=== PATIENT | female | born 1960 | race Two or more races ===

== ENCOUNTER 2016-11-20 15:24 | Emergency (ER) | payer MEDICAID ==
[~2016-11-20] VITALS: Ht 154.9 cm; Wt 88.9 kg
[~2016-11-20 15:24] MED LIST: AMLO5TAB2 PO; ASPI-498 PO; BUPR100T14 PO; CITA-77 PO; GABA-494 PO; INSUINJ47 SC; LEVEMIR SC; LEVO100T8 PO; LOSA50TA6 PO; NOR5T PO; OMEP20CA5 PO
[2016-11-20] MEDS ORDERED: SODIUM CHLORIDE 0.9% 500 ML IVB ONE (15:56)
[2016-11-20] MEDS ORDERED: ONDANSETRON HCL 4 MG/2 ML VIAL IV ONE (16:00)
[2016-11-20] MEDS ORDERED: HYDROmorphone HCL 2 MG/ML VL IV ONE (16:00)
[2016-11-20 16:38] LABS: Basophils # (auto) 0.2 uL; Basophils % (auto) 1.7 % (0.0-2.0); DEFINITIVE VIEW TRANSMISSION; Eosinophils # (auto) 0.2 uL; Eosinophils % (auto) 1.9 % (0.0-7.0); Hematocrit 38.8 % (36.0-46.0); Hemoglobin 12.6 g/dL (12.2-16.2); Lymphocytes # (auto) 3.5 uL; Lymphocytes % (auto) 30.2 % (10.0-50.0); Mean Corpuscular Hemoglobin 26.8 pg (28.0-32.0); Mean Corpuscular Hgb Conc. 32.5 g/dL (32.0-36.0); Mean Corpuscular Volume 82.7 fL (80.0-100.0); Mean Platelet Volume 9.1 fL (7.4-10.4); Monocytes # (auto) 0.6 uL; Monocytes % (auto) 4.8 % (0.0-12.0); Neutrophils # (auto) 7.1 uL; Neutrophils % (auto) 61.4 % (37.0-80.0); Platelet Count (auto) 319 10^3/uL (140-450); Red Cell Distribution Width 15.2 % (11.6-16.0); White Blood Cell 11.6 10^3/uL (4.4-10.8)
[2016-11-20 16:44] LABS: Albumin 3.6 g/dL (3.4-5.0); BUN/Creatinine Ratio 17.4; Bilirubin, Total 0.3 mg/dL (0.2-1.0); Calcium 9.4 mg/dL (8.5-10.1); Potassium 3.6 mmol/L (3.5-5.1); Total Protein 7.7 g/dL (6.4-8.2)
[2016-11-20] MEDS ORDERED: IOHEXOL 300 MG/ML 100ML BOTTLE IJ ONE (18:19)
[2016-11-20 21:44] LABS: Urine Bilirubin Negative (Negative); Urine Blood TRACE /uL (Negative); Urine Color Yellow (Yellow); Urine Glucose Normal (Normal); Urine Ketone Negative (Negative); Urine Nitrite Negative (Negative); Urine RBC 6 /hpf (0 - 4); Urine Squamous Epithelial Cell FEW /hpf (<5); Urine Urobilinogen Normal (Negative)
[2016-11-20 23:35] VITALS: BP 128/62
== END 2016-11-21 00:06 | disposition home or self-care (01) ==
LOC: ER 15:27
DX: R10.9 Unspecified abdominal pain (principal); R11.0 Nausea; E11.9 Type 2 diabetes mellitus without complications; E78.5 Hyperlipidemia, unspecified; I10 Essential (primary) hypertension; Z90.49 Acquired absence of other specified parts of digestive tract; Z90.710 Acquired absence of both cervix and uterus; Z88.8 Allergy status to other drugs, medicaments and biological substances; Z79.4 Long term (current) use of insulin; F17.210 Nicotine dependence, cigarettes, uncomplicated; Z79.82 Long term (current) use of aspirin
CPT/HCPCS: 36415; 74177; 80053; 81001; 82150; 83690; 85025; 93005; 94761; 96361; 96374; 96375; 99285; J1170; J2405; J7040; Q9967

== ENCOUNTER 2017-04-07 13:21 | Emergency (ER) | payer MEDICAID ==
[~2017-04-07] VITALS: Ht 154.9 cm; Wt 84.8 kg
[~2017-04-07 13:21] MED LIST changes: +HYDR-4663 PO; -NOR5T PO; -OMEP20CA5 PO; +OMEP20CA74 PO
[2017-04-07 14:29] LABS: Urine Bilirubin Negative (Negative); Urine Blood 1+ /uL (Negative); Urine Color Yellow (Yellow); Urine Glucose TRACE mg/dL (Normal); Urine Ketone Negative (Negative); Urine Mucus FEW (None Seen); Urine Nitrite Negative (Negative); Urine RBC 28 /hpf (0 - 4); Urine Squamous Epithelial Cell MOD /hpf (<5); Urine pH 5.5 (5.0-8.0)
[2017-04-07 17:00] VITALS: BP 129/73
[2017-04-07] MEDS ORDERED: cefTRIAXone SOD 1,000 MG VL IM ONE (18:00)
== END 2017-04-07 18:33 | disposition home or self-care (01) ==
LOC: ER 13:21
DX: N39.0 Urinary tract infection, site not specified (principal); E11.9 Type 2 diabetes mellitus without complications; E78.5 Hyperlipidemia, unspecified; I10 Essential (primary) hypertension; Z90.710 Acquired absence of both cervix and uterus; Z88.2 Allergy status to sulfonamides; Z79.4 Long term (current) use of insulin; Z90.49 Acquired absence of other specified parts of digestive tract; F17.210 Nicotine dependence, cigarettes, uncomplicated
CPT/HCPCS: 74176; 81001; 82962; 96372; 99285; J0696

== ENCOUNTER 2018-05-17 13:04 | Emergency (ER) | payer MEDICAID ==
[~2018-05-17] VITALS: Ht 154.9 cm; Wt 94.3 kg
[~2018-05-17 13:04] MED LIST changes: +AMLO5TAB13 PO; -AMLO5TAB2 PO; -GABA-494 PO; +GABA100C9 PO; -HYDR-4663 PO; +HYDR-4683 PO; +LOSA-46 PO; -LOSA50TA6 PO
[2018-05-17 13:49] VITALS: BP 107/74
[2018-05-17] MEDS ORDERED: KETOROLAC TROMETH 60MG/2ML VIAL IM ONE (14:45)
[2018-05-17] MEDS ORDERED: METHOCARBAMOL 500 MG TAB PO ONE (14:45)
== END 2018-05-17 16:29 | disposition home or self-care (01) ==
LOC: ER 13:04
DX: M47.26 Other spondylosis with radiculopathy, lumbar region (principal); M85.80 Other specified disorders of bone density and structure, unspecified site; F17.210 Nicotine dependence, cigarettes, uncomplicated; E11.9 Type 2 diabetes mellitus without complications; E78.5 Hyperlipidemia, unspecified; I10 Essential (primary) hypertension; Z90.49 Acquired absence of other specified parts of digestive tract; Z90.710 Acquired absence of both cervix and uterus; Z87.440 Personal history of urinary (tract) infections; Z88.2 Allergy status to sulfonamides; Z79.4 Long term (current) use of insulin
CPT/HCPCS: 72070; 72100; 96372; 99284; J1885

== ENCOUNTER 2020-08-13 10:19 | Inpatient (IN) | payer MEDICAID ==
[~2020-08-13] VITALS: Ht 154.9 cm; Wt 108.0 kg
[~2020-08-13 10:19] MED LIST changes: +AMLO-489 PO; -AMLO5TAB13 PO; -HYDR-4683 PO; +HYDR-4833 PO; -LOSA-46 PO; +LOSA-69 PO
[2020-08-13 11:06] LABS: Basophils # (auto) 0 10 ^3/uL (0-0.2); Basophils % (auto) 0.4 % (0.0-2.0); Eosinophils # (auto) 0 10 ^3/uL (0-0.8); Lymphocytes # (auto) 1.3 10 ^3/uL (0.4-5.4); Monocytes # (auto) 0.5 10 ^3/uL (0-1.3); Neutrophils # (auto) 4.1 10 ^3/uL (1.6-8.6); Neutrophils % (auto) 69.4 % (37.0-80.0)
[2020-08-13 11:08] LABS: Hematocrit 38.9 % (36.0-46.0); Hemoglobin 12.9 g/dL (12.2-16.2); Lymphocytes % (auto) 21.8 % (10.0-50.0); Mean Corpuscular Hemoglobin 26.6 pg (28.0-32.0); Mean Corpuscular Hgb Conc. 33.1 g/dL (32.0-36.0); Mean Corpuscular Volume 80.4 fL (80.0-100.0); Monocytes % (auto) 8.4 % (0.0-12.0); Nucleated Red Blood Cells % 0.1 %; Platelet Count (auto) 187 10^3/uL (140-450); Red Blood Cells 4.84 10^6/uL (4.0-5.20); Red Cell Distribution Width 15.9 % (11.8-14.3)
[2020-08-13 11:21] LABS: Albumin 3.2 g/dL (3.4-5.0); Calcium 8.4 mg/dL (8.5-10.1)
[2020-08-13 11:25] LABS: BUN/Creatinine Ratio 9.1; Bilirubin, Total 0.3 mg/dL (0.2-1.0)
[2020-08-13] MEDS ORDERED: methylPREDNISolone SOD SUCC 125 MG/2 ML VL IV ONE (11:45)
[2020-08-13] MEDS ORDERED: AZITHROMYCIN 500MG/ 250ML 250 ML IV ONE (11:45)
[2020-08-13 11:50] LABS: CRP High Sensitivity 2.08 mg/dL (< 0.3)
[2020-08-13] MEDS ORDERED: REMDESIVIR PER PHARMACY 0 ML IV SCH (12:15)
[2020-08-13] MEDS ORDERED: NITROGLYCERIN 0.4 MG SL TAB SL PRN (12:45)
[2020-08-13] MEDS ORDERED: MORPHINE SULF INJ 2 MG/ML SYRINGE 1ML IV PRN (12:45)
[2020-08-13] MEDS ORDERED: DEXTROSE (50%) 50ML SYRG IV PRN (15:15)
[2020-08-13] MEDS: ACCU-CHEK COMFORT CURVE STRIP VI SCH ×2 (17:00→22:33)
[2020-08-13] MEDS: InsuLIN REG 1unit/0.01ml Soln (100units/ml) SC SCH ×2 (17:00→22:33)
[2020-08-13] MEDS ORDERED: LOSA-39 PO (17:56)
[2020-08-13] MEDS ORDERED: INSU1INJ19 SC (17:56)
[2020-08-13] MEDS ORDERED: KETO2SHA5 EX (17:56)
[2020-08-13] MEDS ORDERED: GABA800T97 PO (17:56)
[2020-08-13] MEDS ORDERED: TRAZ-184 PO (17:56)
[2020-08-13] MEDS ORDERED: ALBUAER3 IN (17:56)
[2020-08-13] MEDS ORDERED: ATOR10TA52 PO (17:56)
[2020-08-13] MEDS ORDERED: OMEP-260 PO (17:56)
[2020-08-13] MEDS ORDERED: INSU100I51 SC (17:56)
[2020-08-13] MEDS ORDERED: BUSP10TA31 PO (17:56)
[2020-08-13] MEDS ORDERED: ESTR0.1C5 VA (17:56)
[2020-08-13] MEDS ORDERED: ESCI20TA PO (17:56)
[2020-08-13] MEDS ORDERED: PREG150C PO (17:56)
[2020-08-13] MEDS ORDERED: LEVO88TA4 PO (17:56)
[2020-08-13] MEDS ORDERED: METF-929 PO (17:56)
[2020-08-13] MEDS ORDERED: LORA-622 PO (18:06)
[2020-08-13] MEDS: buPROPion HCL 75 MG TAB PO SCH (23:07)
[2020-08-13] MEDS: ENOXAPARIN SOD 40 MG/0.4 ML SYRINGE SC SCH (23:08)
[2020-08-14 06:01] LABS: Basophils # (auto) 0 10 ^3/uL (0-0.2); Eosinophils # (auto) 0 10 ^3/uL (0-0.8); Monocytes # (auto) 0.3 10 ^3/uL (0-1.3)
[2020-08-14 06:07] LABS: Hematocrit 38.4 % (36.0-46.0); Hemoglobin 12.9 g/dL (12.2-16.2); Lymphocytes # (auto) 0.8 10 ^3/uL (0.4-5.4); Lymphocytes % (auto) 16.9 % (10.0-50.0); Mean Corpuscular Hemoglobin 26.9 pg (28.0-32.0); Mean Corpuscular Hgb Conc. 33.7 g/dL (32.0-36.0); Mean Corpuscular Volume 79.9 fL (80.0-100.0); Monocytes % (auto) 6.6 % (0.0-12.0); Neutrophils # (auto) 3.7 10 ^3/uL (1.6-8.6); Neutrophils % (auto) 76.5 % (37.0-80.0); Platelet Count (auto) 176 10^3/uL (140-450); Red Blood Cells 4.81 10^6/uL (4.0-5.20); Red Cell Distribution Width 15.7 % (11.8-14.3); White Blood Cell 4.8 10^3/uL (4.4-10.8)
[2020-08-14 06:17] LABS: Potassium 3.8 mmol/L (3.5-5.1)
[2020-08-14 06:30] LABS: BUN/Creatinine Ratio 20.3; Calcium 8.4 mg/dL (8.5-10.1); Magnesium 2.8 mg/dL (1.6-2.6)
[2020-08-14] MEDS: ACCU-CHEK COMFORT CURVE STRIP VI SCH ×4 (07:08→23:44)
[2020-08-14] MEDS: InsuLIN REG 1unit/0.01ml Soln (100units/ml) SC SCH ×4 (07:09→23:51)
[2020-08-14] MEDS ORDERED: AZITHROMYCIN 500MG/ 250ML 250 ML IV SCH (10:00)
[2020-08-14] MEDS ORDERED: LEVOTHYROXINE SODIUM 100 MCG TAB PO SCH (10:00)
[2020-08-14] MEDS: LOSARTAN POTASSIUM 50 MG TAB PO SCH (10:00)
[2020-08-14] MEDS: amLODIPine BESYLATE 5 MG TAB PO SCH (10:00)
[2020-08-14] MEDS: cefTRIAXone 1GM/50ML D5W 50 ML IV SCH (10:02)
[2020-08-14] MEDS: buPROPion HCL 75 MG TAB PO SCH ×2 (10:04→23:41)
[2020-08-14] MEDS: CITALOPRAM HYDROBR 20 MG TAB PO SCH (10:04)
[2020-08-14] MEDS: ENOXAPARIN SOD 40 MG/0.4 ML SYRINGE SC SCH ×2 (10:04→23:41)
[2020-08-14] MEDS: ASPirin-EC 81 mg tab PO SCH (10:04)
[2020-08-14] MEDS: DexAMETHasone SOD PHOS 10MG/1ML VIAL INJ IV SCH (10:06)
[2020-08-14] MEDS: ACETAMINOPHEN 325 MG TAB PO PRN (10:22)
[2020-08-14] MEDS ORDERED: DEXTROSE (50%) 50ML SYRG IV PRN (18:30)
[2020-08-14 21:30] VITALS: BP 139/88
[2020-08-14 22:00] VITALS: BP 138/63
[2020-08-15] MEDS: MORPHINE SULF INJ 2 MG/ML SYRINGE 1ML IV PRN ×2 (03:03→22:28)
[2020-08-15] MEDS: InsuLIN REG 1unit/0.01ml Soln (100units/ml) SC SCH ×4 (06:00→23:48)
[2020-08-15] MEDS: ACCU-CHEK COMFORT CURVE STRIP VI SCH ×4 (06:25→23:46)
[2020-08-15 07:35] LABS: Potassium 3.7 mmol/L (3.5-5.1)
[2020-08-15 07:51] LABS: Albumin 2.9 g/dL (3.4-5.0); BUN/Creatinine Ratio 20.8; Bilirubin, Total 0.3 mg/dL (0.2-1.0); CRP High Sensitivity 1.63 mg/dL (< 0.3); Calcium 8.5 mg/dL (8.5-10.1); Total Protein 7.6 g/dL (6.4-8.2)
[2020-08-15 09:00] VITALS: BP 129/62
[2020-08-15] MEDS: cefTRIAXone 1GM/50ML D5W 50 ML IV SCH (09:33)
[2020-08-15] MEDS: DexAMETHasone SOD PHOS 10MG/1ML VIAL INJ IV SCH (09:33)
[2020-08-15] MEDS: CITALOPRAM HYDROBR 20 MG TAB PO SCH (09:43)
[2020-08-15] MEDS: ASPirin-EC 81 mg tab PO SCH (09:43)
[2020-08-15] MEDS: buPROPion HCL 75 MG TAB PO SCH ×2 (09:45→22:20)
[2020-08-15] MEDS: amLODIPine BESYLATE 5 MG TAB PO SCH (09:50)
[2020-08-15] MEDS ORDERED: LEVOTHYROXINE SODIUM 100 MCG TAB PO SCH (10:00)
[2020-08-15] MEDS: ENOXAPARIN SOD 40 MG/0.4 ML SYRINGE SC SCH ×2 (11:26→22:20)
[2020-08-15] MEDS: LOSARTAN POTASSIUM 50 MG TAB PO SCH (11:26)
[2020-08-15] MEDS: INSULIN LANTUS (GLARGINE) 1 /0.01ml (100units/ml) SC SCH ×2 (11:27→22:27)
[2020-08-15] MEDS: ACETAMINOPHEN 325 MG TAB PO PRN ×2 (11:28→18:45)
[2020-08-15 13:00] VITALS: BP 122/57
[2020-08-15] MEDS ORDERED: REMDESIVIR PER PHARMACY 0 ML IV SCH (15:45)
[2020-08-15 16:00] VITALS: BP 137/71
[2020-08-15] MEDS ORDERED: REMDESIVIR 200 MG in NS 210ml LOADING DOSE ADULT IV ONE (17:00)
[2020-08-15] MEDS: BUDESONIDE (INHALATION) 180 MCG IH IN SCH (21:44)
[2020-08-15] MEDS: ALBUTEROL SULF HFA 90MCG INH 200DOSE IN SCH (21:44)
[2020-08-15] MEDS ORDERED: PATIENTS OWN MEDICATION (PULMICORT 360 MCG) INH SCH (22:00)
[2020-08-16] VITALS: BP 135/74
[2020-08-16] MEDS: ALBUTEROL SULF HFA 90MCG INH 200DOSE IN SCH ×2 (06:09→18:30)
[2020-08-16] MEDS: ACCU-CHEK COMFORT CURVE STRIP VI SCH ×3 (06:09→18:00)
[2020-08-16] MEDS: InsuLIN REG 1unit/0.01ml Soln (100units/ml) SC SCH ×3 (06:27→17:55)
[2020-08-16] MEDS: INSULIN LANTUS (GLARGINE) 1 /0.01ml (100units/ml) SC SCH ×2 (06:27→22:00)
[2020-08-16 08:00] VITALS: BP 119/57
[2020-08-16 08:00] LABS: Basophils # (auto) 0 10 ^3/uL (0-0.2); Basophils % (auto) 0.1 % (0.0-2.0); Eosinophils # (auto) 0 10 ^3/uL (0-0.8); Hemoglobin 12.8 g/dL (12.2-16.2); Neutrophils # (auto) 14.1 10 ^3/uL (1.6-8.6)
[2020-08-16 08:04] LABS: Hematocrit 39.4 % (36.0-46.0); Lymphocytes # (auto) 1.3 10 ^3/uL (0.4-5.4); Lymphocytes % (auto) 8.3 % (10.0-50.0); Mean Corpuscular Hemoglobin 25.9 pg (28.0-32.0); Mean Corpuscular Hgb Conc. 32.5 g/dL (32.0-36.0); Mean Corpuscular Volume 79.6 fL (80.0-100.0); Monocytes # (auto) 0.5 10 ^3/uL (0-1.3); Neutrophils % (auto) 88.6 % (37.0-80.0); Platelet Count (auto) 283 10^3/uL (140-450); Red Blood Cells 4.96 10^6/uL (4.0-5.20); Red Cell Distribution Width 15.6 % (11.8-14.3); White Blood Cell 15.9 10^3/uL (4.4-10.8)
[2020-08-16 08:27] LABS: Potassium 3.7 mmol/L (3.5-5.1)
[2020-08-16 08:46] LABS: Albumin 2.9 g/dL (3.4-5.0); BUN/Creatinine Ratio 14.5; Bilirubin, Total 0.4 mg/dL (0.2-1.0); CRP High Sensitivity 10.3 mg/dL (< 0.3); Calcium 8.8 mg/dL (8.5-10.1); Magnesium 2.4 mg/dL (1.6-2.6)
[2020-08-16] MEDS: BUDESONIDE (INHALATION) 180 MCG IH IN SCH ×2 (09:57→18:30)
[2020-08-16] MEDS: amLODIPine BESYLATE 5 MG TAB PO SCH (10:00)
[2020-08-16] MEDS: LOSARTAN POTASSIUM 50 MG TAB PO SCH (10:00)
[2020-08-16] MEDS: ENOXAPARIN SOD 40 MG/0.4 ML SYRINGE SC SCH ×2 (11:58→22:25)
[2020-08-16] MEDS: buPROPion HCL 75 MG TAB PO SCH ×2 (11:58→22:25)
[2020-08-16] MEDS: DexAMETHasone SOD PHOS 10MG/1ML VIAL INJ IV SCH (11:58)
[2020-08-16] MEDS: LEVOTHYROXINE SODIUM 88 MCG TAB PO SCH (11:58)
[2020-08-16] MEDS: ASPirin-EC 81 mg tab PO SCH (11:58)
[2020-08-16] MEDS: CITALOPRAM HYDROBR 20 MG TAB PO SCH (11:58)
[2020-08-16] MEDS: REMDESIVIR 100 MG in SODIUM CHL 0.9% 250 ML IV SCH (15:35)
[2020-08-16 22:00] VITALS: BP 121/63
[2020-08-17] MEDS: PROMETHAZINE W/CODEINE 5 ML ORAL SYRUP PO PRN (00:05)
[2020-08-17] MEDS: ACCU-CHEK COMFORT CURVE STRIP VI SCH ×4 (00:05→18:00)
[2020-08-17] MEDS: InsuLIN REG 1unit/0.01ml Soln (100units/ml) SC SCH ×4 (00:18→18:45)
[2020-08-17] MEDS: BUDESONIDE (INHALATION) 180 MCG IH IN SCH ×2 (00:25→10:00)
[2020-08-17] MEDS: ALBUTEROL SULF HFA 90MCG INH 200DOSE IN SCH ×2 (00:25→05:49)
[2020-08-17] MEDS: INSULIN LANTUS (GLARGINE) 1 /0.01ml (100units/ml) SC SCH (06:41)
[2020-08-17 07:00] LABS: Potassium 4.2 mmol/L (3.5-5.1)
[2020-08-17 07:14] LABS: Albumin 2.6 g/dL (3.4-5.0); BUN/Creatinine Ratio 23.6; Bilirubin, Total 0.5 mg/dL (0.2-1.0); Calcium 8.7 mg/dL (8.5-10.1); Total Protein 7.6 g/dL (6.4-8.2)
[2020-08-17] MEDS: amLODIPine BESYLATE 5 MG TAB PO SCH (11:25)
[2020-08-17] MEDS: LOSARTAN POTASSIUM 50 MG TAB PO SCH (11:25)
[2020-08-17] MEDS: DexAMETHasone SOD PHOS 10MG/1ML VIAL INJ IV SCH (11:25)
[2020-08-17] MEDS: buPROPion HCL 75 MG TAB PO SCH (11:25)
[2020-08-17] MEDS: CITALOPRAM HYDROBR 20 MG TAB PO SCH (11:25)
[2020-08-17] MEDS: LEVOTHYROXINE SODIUM 88 MCG TAB PO SCH (11:25)
[2020-08-17] MEDS: ENOXAPARIN SOD 40 MG/0.4 ML SYRINGE SC SCH (11:25)
[2020-08-17] MEDS: ASPirin-EC 81 mg tab PO SCH (11:25)
[2020-08-17] MEDS: REMDESIVIR 100 MG in SODIUM CHL 0.9% 250 ML IV SCH (15:35)
[2020-08-17 16:00] VITALS: BP 121/62
[2020-08-18] VITALS: BP 116/59
[2020-08-18] MEDS: ACCU-CHEK COMFORT CURVE STRIP VI SCH ×4 (00:09→17:48)
[2020-08-18] MEDS: buPROPion HCL 75 MG TAB PO SCH ×3 (00:23→21:24)
[2020-08-18] MEDS: ENOXAPARIN SOD 40 MG/0.4 ML SYRINGE SC SCH ×3 (00:24→21:24)
[2020-08-18] MEDS: InsuLIN REG 1unit/0.01ml Soln (100units/ml) SC SCH ×4 (00:25→18:00)
[2020-08-18] MEDS: INSULIN LANTUS (GLARGINE) 1 /0.01ml (100units/ml) SC SCH ×3 (00:26→21:41)
[2020-08-18] MEDS: ALBUTEROL SULF HFA 90MCG INH 200DOSE IN SCH ×3 (07:04→19:55)
[2020-08-18 08:00] VITALS: BP 112/38
[2020-08-18 09:04] LABS: Basophils # (auto) 0 10 ^3/uL (0-0.2); Basophils % (auto) 0.1 % (0.0-2.0); Eosinophils # (auto) 0 10 ^3/uL (0-0.8); Monocytes # (auto) 0.7 10 ^3/uL (0-1.3); Red Blood Cells 4.66 10^6/uL (4.0-5.20)
[2020-08-18 09:05] LABS: Hematocrit 37.6 % (36.0-46.0); Hemoglobin 12.2 g/dL (12.2-16.2); Lymphocytes # (auto) 0.8 10 ^3/uL (0.4-5.4); Lymphocytes % (auto) 7.8 % (10.0-50.0); Mean Corpuscular Hemoglobin 26.2 pg (28.0-32.0); Mean Corpuscular Hgb Conc. 32.5 g/dL (32.0-36.0); Mean Corpuscular Volume 80.7 fL (80.0-100.0); Monocytes % (auto) 7.1 % (0.0-12.0); Neutrophils # (auto) 8.3 10 ^3/uL (1.6-8.6); Platelet Count (auto) 329 10^3/uL (140-450); Red Cell Distribution Width 15.7 % (11.8-14.3); White Blood Cell 9.8 10^3/uL (4.4-10.8)
[2020-08-18 09:13] LABS: Albumin 2.5 g/dL (3.4-5.0); Calcium 9.2 mg/dL (8.5-10.1); Magnesium 2.6 mg/dL (1.6-2.6); Potassium 3.7 mmol/L (3.5-5.1)
[2020-08-18 09:22] LABS: BUN/Creatinine Ratio 33.3; Bilirubin, Total 0.4 mg/dL (0.2-1.0); Total Protein 7.3 g/dL (6.4-8.2)
[2020-08-18] MEDS: LOSARTAN POTASSIUM 50 MG TAB PO SCH (10:00)
[2020-08-18] MEDS: LEVOTHYROXINE SODIUM 88 MCG TAB PO SCH (10:12)
[2020-08-18] MEDS: ASPirin-EC 81 mg tab PO SCH (10:12)
[2020-08-18] MEDS: DexAMETHasone SOD PHOS 10MG/1ML VIAL INJ IV SCH (10:12)
[2020-08-18] MEDS: CITALOPRAM HYDROBR 20 MG TAB PO SCH (10:12)
[2020-08-18] MEDS: amLODIPine BESYLATE 5 MG TAB PO SCH (10:51)
[2020-08-18 11:43] LABS: Pre Albumin 8.7 mg/dL (20.0-40.0)
[2020-08-18] MEDS: BUDESONIDE (INHALATION) 180 MCG IH IN SCH ×2 (11:48→19:55)
[2020-08-18] MEDS ORDERED: SODIUM PHOSP 40 MEQ in D5W 5% 250 ML IV ONE (12:00)
[2020-08-18] MEDS ORDERED: DEXTROSE (50%) 50ML SYRG IV SCH (12:00)
[2020-08-18] MEDS: REMDESIVIR 100 MG in SODIUM CHL 0.9% 250 ML IV SCH (15:54)
[2020-08-18 16:00] VITALS: BP 133/59
[2020-08-18] MEDS ORDERED: PPN PER PHARMACY IV NR ×8 (20:00)
[2020-08-18] MEDS ORDERED: PPN PER PHARMACY 0 ML IV SCH (20:00)
[2020-08-19] VITALS: BP 96/65
[2020-08-19] MEDS: ACCU-CHEK COMFORT CURVE STRIP VI SCH ×5 (00:02→23:15)
[2020-08-19] MEDS: InsuLIN REG 1unit/0.01ml Soln (100units/ml) SC SCH ×5 (00:05→23:16)
[2020-08-19] MEDS: INSULIN LANTUS (GLARGINE) 1 /0.01ml (100units/ml) SC SCH ×2 (06:32→23:18)
[2020-08-19] MEDS: ALBUTEROL SULF HFA 90MCG INH 200DOSE IN SCH ×3 (06:37→18:59)
[2020-08-19] MEDS: BUDESONIDE (INHALATION) 180 MCG IH IN SCH ×2 (06:38→18:59)
[2020-08-19 07:57] LABS: Potassium 3.8 mmol/L (3.5-5.1)
[2020-08-19 08:00] VITALS: BP 137/60
[2020-08-19 08:19] LABS: Albumin 2.6 g/dL (3.4-5.0); BUN/Creatinine Ratio 27.9; Bilirubin, Total 0.5 mg/dL (0.2-1.0); Calcium 8.6 mg/dL (8.5-10.1); Magnesium 2.3 mg/dL (1.6-2.6)
[2020-08-19 08:20] LABS: Phosphorus 3.1 mg/dL (2.5-4.90)
[2020-08-19] MEDS: ENOXAPARIN SOD 40 MG/0.4 ML SYRINGE SC SCH ×2 (13:24→23:17)
[2020-08-19] MEDS: ASPirin-EC 81 mg tab PO SCH (13:25)
[2020-08-19] MEDS: LEVOTHYROXINE SODIUM 88 MCG TAB PO SCH (13:25)
[2020-08-19] MEDS: buPROPion HCL 75 MG TAB PO SCH ×2 (13:25→23:15)
[2020-08-19] MEDS: CITALOPRAM HYDROBR 20 MG TAB PO SCH (13:25)
[2020-08-19] MEDS: LOSARTAN POTASSIUM 50 MG TAB PO SCH (13:25)
[2020-08-19] MEDS: DexAMETHasone SOD PHOS 10MG/1ML VIAL INJ IV SCH (13:26)
[2020-08-19] MEDS: amLODIPine BESYLATE 5 MG TAB PO SCH (13:26)
[2020-08-19 16:00] VITALS: BP 125/68
[2020-08-19] MEDS: REMDESIVIR 100 MG in SODIUM CHL 0.9% 250 ML IV SCH (18:52)
[2020-08-19] MEDS ORDERED: PPN PER PHARMACY IV NR ×11 (20:00)
[2020-08-19] MEDS: ACETAMINOPHEN 325 MG TAB PO PRN (23:34)
[2020-08-20] MEDS: ALBUTEROL SULF HFA 90MCG INH 200DOSE IN SCH ×3 (06:00→14:00)
[2020-08-20] MEDS: ACCU-CHEK COMFORT CURVE STRIP VI SCH ×4 (06:21→23:30)
[2020-08-20] MEDS: InsuLIN REG 1unit/0.01ml Soln (100units/ml) SC SCH ×4 (06:23→23:31)
[2020-08-20] MEDS: INSULIN LANTUS (GLARGINE) 1 /0.01ml (100units/ml) SC SCH ×2 (06:24→23:29)
[2020-08-20 06:59] LABS: Hemoglobin 12.4 g/dL (12.2-16.2)
[2020-08-20 07:04] LABS: Hematocrit 38.6 % (36.0-46.0); Mean Corpuscular Hemoglobin 25.7 pg (28.0-32.0); Mean Corpuscular Hgb Conc. 32.1 g/dL (32.0-36.0); Mean Corpuscular Volume 80.2 fL (80.0-100.0); Platelet Count (auto) 344 10^3/uL (140-450); Red Blood Cells 4.81 10^6/uL (4.0-5.20); Red Cell Distribution Width 15.6 % (11.8-14.3); White Blood Cell 10.5 10^3/uL (4.4-10.8)
[2020-08-20 07:11] LABS: Band Neutrophils % (manual) 0; Basophils % (manual) 0 (0.0-2.0); Blast Cells 0; Eosinophils % (manual) 0 (0-7); Metamyelocytes % 0; Promyelocytes % 0; Reactive Lymphocytes 0
[2020-08-20 07:23] LABS: Potassium 3.7 mmol/L (3.5-5.1)
[2020-08-20 07:36] LABS: Albumin 2.5 g/dL (3.4-5.0); BUN/Creatinine Ratio 26.3; Bilirubin, Total 0.7 mg/dL (0.2-1.0); Magnesium 2.2 mg/dL (1.6-2.6); Phosphorus 2.5 mg/dL (2.5-4.90); Total Protein 7.2 g/dL (6.4-8.2)
[2020-08-20 08:00] VITALS: BP 135/74
[2020-08-20 08:15] LABS: Lymphocytes % (manual) 9 (10.0-50.0); Monocytes % (manual) 2 (0-12); Myelocytes % 2
[2020-08-20] MEDS ORDERED: FUROSEMIDE 40 MG/4 ML VIAL IV ONE (08:30)
[2020-08-20] MEDS: BUDESONIDE (INHALATION) 180 MCG IH IN SCH (10:00)
[2020-08-20] MEDS: ENOXAPARIN SOD 40 MG/0.4 ML SYRINGE SC SCH ×2 (10:00→23:29)
[2020-08-20] MEDS: buPROPion HCL 75 MG TAB PO SCH ×2 (11:40→23:28)
[2020-08-20] MEDS: CITALOPRAM HYDROBR 20 MG TAB PO SCH (11:40)
[2020-08-20] MEDS: DexAMETHasone SOD PHOS 10MG/1ML VIAL INJ IV SCH (11:40)
[2020-08-20] MEDS: LOSARTAN POTASSIUM 50 MG TAB PO SCH (11:41)
[2020-08-20] MEDS: LEVOTHYROXINE SODIUM 88 MCG TAB PO SCH (11:41)
[2020-08-20] MEDS: ASPirin-EC 81 mg tab PO SCH (11:41)
[2020-08-20] MEDS: amLODIPine BESYLATE 5 MG TAB PO SCH (11:42)
[2020-08-20] MEDS: ONDANSETRON HCL 4 MG/2 ML VIAL IV PRN (16:45)
[2020-08-20] MEDS: MORPHINE SULF INJ 2 MG/ML SYRINGE 1ML IV PRN (16:45)
[2020-08-20] MEDS ORDERED: PPN PER PHARMACY IV NR ×10 (20:00)
[2020-08-20] MEDS ORDERED: AMINO ACID INFUSION IN D10W 1,000 ML IV NR (20:00)
[2020-08-21] MEDS: ACCU-CHEK COMFORT CURVE STRIP VI SCH ×4 (05:57→23:10)
[2020-08-21] MEDS: InsuLIN REG 1unit/0.01ml Soln (100units/ml) SC SCH ×4 (05:59→23:12)
[2020-08-21] MEDS: INSULIN LANTUS (GLARGINE) 1 /0.01ml (100units/ml) SC SCH ×2 (06:01→23:09)
[2020-08-21 08:00] VITALS: BP 119/75
[2020-08-21 09:01] LABS: Potassium 3.8 mmol/L (3.5-5.1)
[2020-08-21] MEDS ORDERED: PPN PER PHARMACY IV NR ×19 (09:15→20:00)
[2020-08-21] MEDS: BUDESONIDE (INHALATION) 180 MCG IH IN SCH ×2 (10:00→20:22)
[2020-08-21] MEDS: ALBUTEROL SULF HFA 90MCG INH 200DOSE IN SCH ×2 (10:00→20:22)
[2020-08-21 10:06] LABS: Albumin 2.7 g/dL (3.4-5.0); Bilirubin, Total 0.6 mg/dL (0.2-1.0); Calcium 9.2 mg/dL (8.5-10.1); Phosphorus 2.4 mg/dL (2.5-4.90); Total Protein 7.6 g/dL (6.4-8.2)
[2020-08-21 10:58] LABS: CRP High Sensitivity 1.84 mg/dL (< 0.3)
[2020-08-21] MEDS: DexAMETHasone SOD PHOS 10MG/1ML VIAL INJ IV SCH (11:56)
[2020-08-21] MEDS ORDERED: SODIUM PHOSPHATES 10 MEQ in SODIUM CHL 0.9% 100 ML IV ONE (12:00)
[2020-08-21] MEDS: buPROPion HCL 75 MG TAB PO SCH ×2 (12:30→23:36)
[2020-08-21] MEDS: LEVOTHYROXINE SODIUM 88 MCG TAB PO SCH (12:30)
[2020-08-21] MEDS: LOSARTAN POTASSIUM 50 MG TAB PO SCH (12:30)
[2020-08-21] MEDS: amLODIPine BESYLATE 5 MG TAB PO SCH (12:30)
[2020-08-21] MEDS: ASPirin-EC 81 mg tab PO SCH (12:30)
[2020-08-21] MEDS: CITALOPRAM HYDROBR 20 MG TAB PO SCH (12:30)
[2020-08-21] MEDS: ENOXAPARIN SOD 40 MG/0.4 ML SYRINGE SC SCH ×2 (13:15→23:10)
[2020-08-21] MEDS: FUROSEMIDE 40 MG/4 ML VIAL IV SCH (13:26)
[2020-08-21 16:00] VITALS: BP 121/65
[2020-08-21 20:22] VITALS: BP 121/65
[2020-08-21] MEDS: ONDANSETRON HCL 4 MG/2 ML VIAL IV PRN (23:18)
[2020-08-21] MEDS: MORPHINE SULF INJ 2 MG/ML SYRINGE 1ML IV PRN (23:19)
[2020-08-22] VITALS: BP 131/72
[2020-08-22] MEDS: ALBUTEROL SULF HFA 90MCG INH 200DOSE IN SCH ×3 (06:00→22:00)
[2020-08-22] MEDS: ACCU-CHEK COMFORT CURVE STRIP VI SCH ×3 (06:00→17:53)
[2020-08-22] MEDS: InsuLIN REG 1unit/0.01ml Soln (100units/ml) SC SCH ×3 (06:39→17:53)
[2020-08-22] MEDS: INSULIN LANTUS (GLARGINE) 1 /0.01ml (100units/ml) SC SCH ×2 (06:40→22:22)
[2020-08-22 09:03] LABS: Mean Corpuscular Volume 80.4 fL (80.0-100.0); Platelet Count (auto) 351 10^3/uL (140-450)
[2020-08-22 09:04] LABS: Hemoglobin 12.9 g/dL (12.2-16.2); Mean Corpuscular Hgb Conc. 32.4 g/dL (32.0-36.0); Red Blood Cells 4.97 10^6/uL (4.0-5.20); Red Cell Distribution Width 15.7 % (11.8-14.3); White Blood Cell 16.5 10^3/uL (4.4-10.8)
[2020-08-22] MEDS: DexAMETHasone SOD PHOS 10MG/1ML VIAL INJ IV SCH (09:06)
[2020-08-22] MEDS: ENOXAPARIN SOD 40 MG/0.4 ML SYRINGE SC SCH (09:06)
[2020-08-22] MEDS: BUDESONIDE (INHALATION) 180 MCG IH IN SCH ×2 (09:06→22:00)
[2020-08-22 09:07] LABS: Basophils % (manual) 0 (0.0-2.0); Blast Cells 0; Eosinophils % (manual) 0 (0-7); Metamyelocytes % 0; Myelocytes % 0; Promyelocytes % 0; Reactive Lymphocytes 0
[2020-08-22] MEDS: buPROPion HCL 75 MG TAB PO SCH ×2 (09:09→22:21)
[2020-08-22] MEDS: LEVOTHYROXINE SODIUM 88 MCG TAB PO SCH (09:09)
[2020-08-22] MEDS: ASPirin-EC 81 mg tab PO SCH (09:10)
[2020-08-22] MEDS: CITALOPRAM HYDROBR 20 MG TAB PO SCH (09:10)
[2020-08-22] MEDS: LOSARTAN POTASSIUM 50 MG TAB PO SCH (09:10)
[2020-08-22] MEDS: amLODIPine BESYLATE 5 MG TAB PO SCH (09:10)
[2020-08-22 09:32] LABS: Albumin 2.4 g/dL (3.4-5.0); Calcium 8.9 mg/dL (8.5-10.1); Magnesium 2.3 mg/dL (1.6-2.6); Potassium 3.6 mmol/L (3.5-5.1)
[2020-08-22 09:37] LABS: BUN/Creatinine Ratio 30.6; Bilirubin, Total 0.6 mg/dL (0.2-1.0); Phosphorus 2.7 mg/dL (2.5-4.90); Total Protein 7.4 g/dL (6.4-8.2)
[2020-08-22 11:15] LABS: Band Neutrophils % (manual) 5; Lymphocytes % (manual) 3 (10.0-50.0); Monocytes % (manual) 3 (0-12)
[2020-08-22] MEDS: FUROSEMIDE 40 MG/4 ML VIAL IV SCH (12:20)
[2020-08-22 17:00] VITALS: BP 133/70
[2020-08-22] MEDS ORDERED: PPN PER PHARMACY IV NR ×10 (20:00)
[2020-08-22 23:58] VITALS: BP 139/74
[2020-08-23] MEDS: ACCU-CHEK COMFORT CURVE STRIP VI SCH ×4 (00:25→17:47)
[2020-08-23] MEDS: InsuLIN REG 1unit/0.01ml Soln (100units/ml) SC SCH ×4 (00:28→17:48)
[2020-08-23] MEDS: ALBUTEROL SULF HFA 90MCG INH 200DOSE IN SCH ×3 (06:00→18:38)
[2020-08-23] MEDS: INSULIN LANTUS (GLARGINE) 1 /0.01ml (100units/ml) SC SCH ×2 (06:42→22:21)
[2020-08-23 08:00] VITALS: BP 136/69
[2020-08-23] MEDS: ASPirin-EC 81 mg tab PO SCH (09:07)
[2020-08-23] MEDS: amLODIPine BESYLATE 5 MG TAB PO SCH (09:08)
[2020-08-23] MEDS: ENOXAPARIN SOD 40 MG/0.4 ML SYRINGE SC SCH (09:08)
[2020-08-23] MEDS: DexAMETHasone SOD PHOS 10MG/1ML VIAL INJ IV SCH (09:09)
[2020-08-23] MEDS: buPROPion HCL 75 MG TAB PO SCH ×2 (09:09→22:26)
[2020-08-23] MEDS: LEVOTHYROXINE SODIUM 88 MCG TAB PO SCH (09:09)
[2020-08-23] MEDS: CITALOPRAM HYDROBR 20 MG TAB PO SCH (09:09)
[2020-08-23] MEDS: FUROSEMIDE 40 MG/4 ML VIAL IV SCH (09:10)
[2020-08-23] MEDS: LOSARTAN POTASSIUM 50 MG TAB PO SCH (09:10)
[2020-08-23] MEDS: BUDESONIDE (INHALATION) 180 MCG IH IN SCH ×2 (10:00→18:38)
[2020-08-23 10:04] LABS: Albumin 2.3 g/dL (3.4-5.0); Calcium 8.8 mg/dL (8.5-10.1); Magnesium 2.4 mg/dL (1.6-2.6); Potassium 3.6 mmol/L (3.5-5.1)
[2020-08-23 10:08] LABS: BUN/Creatinine Ratio 35.4; Bilirubin, Total 0.5 mg/dL (0.2-1.0); Phosphorus 2.4 mg/dL (2.5-4.90); Total Protein 7.7 g/dL (6.4-8.2)
[2020-08-23] MEDS ORDERED: SODIUM PHOSPHATES 20 MEQ in SODIUM CHL 0.9% 100 ML IV ONE (12:00)
[2020-08-23 16:00] VITALS: BP 123/65
[2020-08-23 20:00] VITALS: BP 136/69
[2020-08-23] MEDS ORDERED: POTASSIUM CHLORIDE IV NR ×11 (20:00)
[2020-08-23] MEDS ORDERED: SODIUM PHOSPHATES IV NR ×11 (20:00)
[2020-08-23] MEDS ORDERED: FAT EMULSION IV NR ×11 (20:00)
[2020-08-23] MEDS ORDERED: [UNRECOGNIZED DRUG - OTHER] IV NR ×11 (20:00)
[2020-08-24] VITALS: BP 112/51
[2020-08-24] MEDS: ACCU-CHEK COMFORT CURVE STRIP VI SCH ×4 (06:00→18:00)
[2020-08-24] MEDS: InsuLIN REG 1unit/0.01ml Soln (100units/ml) SC SCH ×4 (06:00→18:00)
[2020-08-24] MEDS: ALBUTEROL SULF HFA 90MCG INH 200DOSE IN SCH ×3 (06:00→20:36)
[2020-08-24] MEDS: INSULIN LANTUS (GLARGINE) 1 /0.01ml (100units/ml) SC SCH ×2 (07:12→21:35)
[2020-08-24 08:00] VITALS: BP 153/75
[2020-08-24] MEDS: DexAMETHasone SOD PHOS 10MG/1ML VIAL INJ IV SCH (08:27)
[2020-08-24] MEDS: LOSARTAN POTASSIUM 50 MG TAB PO SCH (08:28)
[2020-08-24] MEDS: FUROSEMIDE 40 MG/4 ML VIAL IV SCH (08:28)
[2020-08-24] MEDS: CITALOPRAM HYDROBR 20 MG TAB PO SCH (08:29)
[2020-08-24] MEDS: LEVOTHYROXINE SODIUM 88 MCG TAB PO SCH (08:29)
[2020-08-24] MEDS: ASPirin-EC 81 mg tab PO SCH (08:29)
[2020-08-24] MEDS: ENOXAPARIN SOD 40 MG/0.4 ML SYRINGE SC SCH (08:30)
[2020-08-24] MEDS: amLODIPine BESYLATE 5 MG TAB PO SCH (08:30)
[2020-08-24] MEDS: buPROPion HCL 75 MG TAB PO SCH ×3 (11:15→21:40)
[2020-08-24] MEDS: BUDESONIDE (INHALATION) 180 MCG IH IN SCH ×2 (11:15→20:36)
[2020-08-24 12:59] LABS: Albumin 2.3 g/dL (3.4-5.0); Calcium 8.6 mg/dL (8.5-10.1); Magnesium 2.2 mg/dL (1.6-2.6); Potassium 4.1 mmol/L (3.5-5.1)
[2020-08-24 13:02] LABS: BUN/Creatinine Ratio 36.4; Bilirubin, Total 0.6 mg/dL (0.2-1.0); Phosphorus 3.4 mg/dL (2.5-4.90); Total Protein 7.8 g/dL (6.4-8.2)
[2020-08-24 16:00] VITALS: BP 126/74
[2020-08-24] MEDS ORDERED: PPN PER PHARMACY IV NR ×12 (20:00)
[2020-08-24] MEDS: FAMOTIDINE (10MG/ML) 2ML VL IV SCH (21:34)
[2020-08-25] VITALS: BP 132/57
[2020-08-25] MEDS: SODIUM CHLORIDE 0.9% 1,000 ML IV SCH ×2 (00:18→08:47)
[2020-08-25] MEDS: ACCU-CHEK COMFORT CURVE STRIP VI SCH ×4 (00:18→18:21)
[2020-08-25] MEDS: InsuLIN REG 1unit/0.01ml Soln (100units/ml) SC SCH ×4 (00:57→18:26)
[2020-08-25] MEDS: INSULIN LANTUS (GLARGINE) 1 /0.01ml (100units/ml) SC SCH ×2 (06:13→22:30)
[2020-08-25] MEDS: BUDESONIDE (INHALATION) 180 MCG IH IN SCH ×2 (07:28→22:00)
[2020-08-25] MEDS: ALBUTEROL SULF HFA 90MCG INH 200DOSE IN SCH ×3 (07:28→22:00)
[2020-08-25 08:00] VITALS: BP 144/80
[2020-08-25 08:24] LABS: Basophils # (auto) 0 10 ^3/uL (0-0.2); Basophils % (auto) 0.1 % (0.0-2.0); Eosinophils # (auto) 0 10 ^3/uL (0-0.8); Eosinophils % (auto) 0.2 % (0.0-7.0)
[2020-08-25 08:28] LABS: Hematocrit 38.4 % (36.0-46.0); Hemoglobin 12.7 g/dL (12.2-16.2); Lymphocytes % (auto) 4.5 % (10.0-50.0); Mean Corpuscular Hemoglobin 26.5 pg (28.0-32.0); Mean Corpuscular Hgb Conc. 33.1 g/dL (32.0-36.0); Mean Corpuscular Volume 79.9 fL (80.0-100.0); Monocytes # (auto) 0.9 10 ^3/uL (0-1.3); Monocytes % (auto) 4.1 % (0.0-12.0); Neutrophils % (auto) 91.1 % (37.0-80.0); Platelet Count (auto) 384 10^3/uL (140-450); Red Blood Cells 4.81 10^6/uL (4.0-5.20); Red Cell Distribution Width 15.6 % (11.8-14.3)
[2020-08-25 08:50] LABS: INR 1.03 (0.9-1.15); Partial Thromboplastin Time 22.8 sec (23.0-31.2)
[2020-08-25 09:10] LABS: Potassium 3.9 mmol/L (3.5-5.1)
[2020-08-25 09:11] LABS: Magnesium 2.3 mg/dL (1.6-2.6); Phosphorus 3.1 mg/dL (2.5-4.90)
[2020-08-25 09:14] LABS: Albumin 2.3 g/dL (3.4-5.0); BUN/Creatinine Ratio 53.6; Calcium 8.8 mg/dL (8.5-10.1)
[2020-08-25 09:17] LABS: Bilirubin, Total 0.5 mg/dL (0.2-1.0); Total Protein 7.4 g/dL (6.4-8.2)
[2020-08-25] MEDS: ASPirin-EC 81 mg tab PO SCH (09:50)
[2020-08-25] MEDS: CITALOPRAM HYDROBR 20 MG TAB PO SCH (09:50)
[2020-08-25] MEDS: LOSARTAN POTASSIUM 50 MG TAB PO SCH (09:50)
[2020-08-25] MEDS: DexAMETHasone SOD PHOS 10MG/1ML VIAL INJ IV SCH (09:50)
[2020-08-25] MEDS: FAMOTIDINE (10MG/ML) 2ML VL IV SCH ×2 (09:50→22:00)
[2020-08-25] MEDS: LEVOTHYROXINE SODIUM 88 MCG TAB PO SCH (09:51)
[2020-08-25] MEDS: amLODIPine BESYLATE 5 MG TAB PO SCH (09:51)
[2020-08-25] MEDS: buPROPion HCL 75 MG TAB PO SCH ×2 (09:51→22:00)
[2020-08-25] MEDS: FUROSEMIDE 40 MG/4 ML VIAL IV SCH (09:52)
[2020-08-25] MEDS: ENOXAPARIN SOD 40 MG/0.4 ML SYRINGE SC SCH (09:52)
[2020-08-25 16:09] VITALS: BP 120/70
[2020-08-25] MEDS ORDERED: PPN PER PHARMACY IV NR ×10 (20:00)
[2020-08-26] VITALS: BP 144/71
[2020-08-26] MEDS: ACCU-CHEK COMFORT CURVE STRIP VI SCH ×5 (00:14→23:56)
[2020-08-26] MEDS: InsuLIN REG 1unit/0.01ml Soln (100units/ml) SC SCH ×5 (00:20→23:55)
[2020-08-26] MEDS: MORPHINE SULF INJ 2 MG/ML SYRINGE 1ML IV PRN (01:12)
[2020-08-26] MEDS: ONDANSETRON HCL 4 MG/2 ML VIAL IV PRN ×2 (01:12→02:27)
[2020-08-26] MEDS: LEVOTHYROXINE SODIUM 100 MCG/5 ML INJ IV SCH ×2 (06:11→10:00)
[2020-08-26] MEDS: INSULIN LANTUS (GLARGINE) 1 /0.01ml (100units/ml) SC SCH ×2 (06:23→21:34)
[2020-08-26 08:00] VITALS: BP 128/71
[2020-08-26 08:28] LABS: Potassium 4.5 mmol/L (3.5-5.1)
[2020-08-26 08:40] LABS: Albumin 2.1 g/dL (3.4-5.0); BUN/Creatinine Ratio 49.2; Bilirubin, Total 0.5 mg/dL (0.2-1.0); Magnesium 2.4 mg/dL (1.6-2.6); Phosphorus 3.4 mg/dL (2.5-4.90); Total Protein 7.6 g/dL (6.4-8.2)
[2020-08-26] MEDS: BUDESONIDE (INHALATION) 180 MCG IH IN SCH ×2 (09:17→21:32)
[2020-08-26] MEDS: ALBUTEROL SULF HFA 90MCG INH 200DOSE IN SCH ×2 (09:17→21:32)
[2020-08-26] MEDS: buPROPion HCL 75 MG TAB PO SCH ×2 (10:00→21:38)
[2020-08-26] MEDS: CITALOPRAM HYDROBR 20 MG TAB PO SCH (10:00)
[2020-08-26] MEDS: FAMOTIDINE (10MG/ML) 2ML VL IV SCH ×2 (10:00→21:38)
[2020-08-26] MEDS: ASPirin-EC 81 mg tab PO SCH (10:00)
[2020-08-26] MEDS: LOSARTAN POTASSIUM 50 MG TAB PO SCH (10:00)
[2020-08-26] MEDS: amLODIPine BESYLATE 5 MG TAB PO SCH (10:00)
[2020-08-26] MEDS: DexAMETHasone SOD PHOS 10MG/1ML VIAL INJ IV SCH (10:23)
[2020-08-26] MEDS: FUROSEMIDE 40 MG/4 ML VIAL IV SCH (10:23)
[2020-08-26] MEDS: ENOXAPARIN SOD 40 MG/0.4 ML SYRINGE SC SCH (10:26)
[2020-08-26] MEDS: MEROPENEM 1GM IVPB 100 ML IV SCH ×2 (14:08→21:37)
[2020-08-26 16:00] VITALS: BP 119/64
[2020-08-26] MEDS ORDERED: PPN PER PHARMACY IV NR ×11 (20:00)
[2020-08-27] VITALS: BP 146/77
[2020-08-27] MEDS: ALBUTEROL SULF HFA 90MCG INH 200DOSE IN SCH ×2 (06:00→22:00)
[2020-08-27] MEDS: BUDESONIDE (INHALATION) 180 MCG IH IN SCH ×2 (06:22→22:00)
[2020-08-27] MEDS: ACCU-CHEK COMFORT CURVE STRIP VI SCH ×3 (06:28→17:41)
[2020-08-27] MEDS: MEROPENEM 1GM IVPB 100 ML IV SCH ×3 (06:28→22:09)
[2020-08-27] MEDS: InsuLIN REG 1unit/0.01ml Soln (100units/ml) SC SCH ×3 (06:28→17:53)
[2020-08-27] MEDS: INSULIN LANTUS (GLARGINE) 1 /0.01ml (100units/ml) SC SCH ×2 (06:31→22:09)
[2020-08-27 07:13] LABS: Basophils # (auto) 0.1 10 ^3/uL (0-0.2); Basophils % (auto) 0.4 % (0.0-2.0); Eosinophils # (auto) 0 10 ^3/uL (0-0.8); Eosinophils % (auto) 0.2 % (0.0-7.0); Hematocrit 41.1 % (36.0-46.0); Hemoglobin 13.4 g/dL (12.2-16.2); Lymphocytes # (auto) 1.2 10 ^3/uL (0.4-5.4); Lymphocytes % (auto) 5.4 % (10.0-50.0); Mean Corpuscular Hemoglobin 26.3 pg (28.0-32.0); Mean Corpuscular Hgb Conc. 32.6 g/dL (32.0-36.0); Mean Corpuscular Volume 80.7 fL (80.0-100.0); Monocytes % (auto) 4.5 % (0.0-12.0); Neutrophils # (auto) 19.7 10 ^3/uL (1.6-8.6); Neutrophils % (auto) 89.5 % (37.0-80.0); Platelet Count (auto) 398 10^3/uL (140-450); Red Blood Cells 5.09 10^6/uL (4.0-5.20); Red Cell Distribution Width 15.4 % (11.8-14.3)
[2020-08-27 07:39] LABS: Alkaline Phosphatase 121 U/L (45-117); Bilirubin, Total 0.6 mg/dL (0.2-1.0); Phosphorus 3.3 mg/dL (2.5-4.90); Total Protein 7.6 g/dL (6.4-8.2)
[2020-08-27 07:47] LABS: Alanine Aminotransferase 120 U/L (13-56); Albumin 2.3 g/dL (3.4-5.0); Anion Gap 15 (5-15); Aspartate Aminotransferase 57 U/L (15-37); BUN/Creatinine Ratio 55.2; Blood Urea Nitrogen 32 mg/dL (7-18); Carbon Dioxide 18 mmol/L (21-32); Chloride 101 mmol/L (98-107); GFR African American 137 mL/min; GFR Non-African American 113 mL/min; Glucose 168 mg/dL (74-106); Potassium 4.1 mmol/L (3.5-5.1); Sodium 134 mmol/L (136-145)
[2020-08-27 07:48] LABS: Magnesium 2.3 mg/dL (1.6-2.6)
[2020-08-27 08:00] VITALS: BP 148/74
[2020-08-27] MEDS: ENOXAPARIN SOD 40 MG/0.4 ML SYRINGE SC SCH (10:00)
[2020-08-27] MEDS: buPROPion HCL 75 MG TAB PO SCH ×2 (10:00→22:00)
[2020-08-27] MEDS: amLODIPine BESYLATE 5 MG TAB PO SCH (10:00)
[2020-08-27] MEDS: ASPirin-EC 81 mg tab PO SCH (10:00)
[2020-08-27] MEDS: CITALOPRAM HYDROBR 20 MG TAB PO SCH (10:00)
[2020-08-27] MEDS: LOSARTAN POTASSIUM 50 MG TAB PO SCH (10:00)
[2020-08-27] MEDS: LEVOTHYROXINE SODIUM 100 MCG/5 ML INJ IV SCH (11:21)
[2020-08-27] MEDS: DexAMETHasone SOD PHOS 10MG/1ML VIAL INJ IV SCH (11:21)
[2020-08-27] MEDS: FAMOTIDINE (10MG/ML) 2ML VL IV SCH ×2 (11:21→22:00)
[2020-08-27] MEDS: FUROSEMIDE 40 MG/4 ML VIAL IV SCH (11:25)
[2020-08-27] MEDS: MORPHINE SULF INJ 2 MG/ML SYRINGE 1ML IV PRN ×2 (14:57→22:11)
[2020-08-27 16:21] VITALS: BP 137/80
[2020-08-27] MEDS ORDERED: PPN PER PHARMACY IV NR ×12 (20:00)
[2020-08-28] VITALS: BP 142/82
[2020-08-28] MEDS: InsuLIN REG 1unit/0.01ml Soln (100units/ml) SC SCH ×4 (00:30→17:50)
[2020-08-28] MEDS: ACCU-CHEK COMFORT CURVE STRIP VI SCH ×4 (00:31→17:50)
[2020-08-28] MEDS: MEROPENEM 1GM IVPB 100 ML IV SCH ×3 (05:20→22:44)
[2020-08-28] MEDS: INSULIN LANTUS (GLARGINE) 1 /0.01ml (100units/ml) SC SCH ×2 (05:25→22:45)
[2020-08-28 08:00] VITALS: BP 138/80
[2020-08-28] MEDS ORDERED: VANCOMYCIN PER PHARMACY 0 MG IV SCH (08:00)
[2020-08-28 08:10] LABS: Basophils # (auto) 0 10 ^3/uL (0-0.2); Eosinophils # (auto) 0.2 10 ^3/uL (0-0.8); Hemoglobin 13.1 g/dL (12.2-16.2); Lymphocytes # (auto) 0.9 10 ^3/uL (0.4-5.4); Mean Corpuscular Hgb Conc. 32.9 g/dL (32.0-36.0); Neutrophils % (auto) 90.6 % (37.0-80.0); White Blood Cell 18.8 10^3/uL (4.4-10.8)
[2020-08-28 08:13] LABS: Basophils % (auto) 0.2 % (0.0-2.0); Eosinophils % (auto) 1.3 % (0.0-7.0); Hematocrit 39.7 % (36.0-46.0); Lymphocytes % (auto) 4.6 % (10.0-50.0); Mean Corpuscular Hemoglobin 26.6 pg (28.0-32.0); Mean Corpuscular Volume 80.9 fL (80.0-100.0); Monocytes # (auto) 0.6 10 ^3/uL (0-1.3); Monocytes % (auto) 3.3 % (0.0-12.0); Platelet Count (auto) 309 10^3/uL (140-450); Red Blood Cells 4.91 10^6/uL (4.0-5.20); Red Cell Distribution Width 15.7 % (11.8-14.3)
[2020-08-28 08:16] LABS: Potassium 3.6 mmol/L (3.5-5.1)
[2020-08-28] MEDS: BUDESONIDE (INHALATION) 180 MCG IH IN SCH ×2 (08:20→22:43)
[2020-08-28] MEDS: ALBUTEROL SULF HFA 90MCG INH 200DOSE IN SCH ×3 (08:20→22:43)
[2020-08-28 08:23] LABS: Albumin 2.1 g/dL (3.4-5.0); BUN/Creatinine Ratio 53.7; Bilirubin, Total 0.7 mg/dL (0.2-1.0); Calcium 8.7 mg/dL (8.5-10.1); Magnesium 2.2 mg/dL (1.6-2.6); Total Protein 7.2 g/dL (6.4-8.2)
[2020-08-28] MEDS ORDERED: VANCOMYCIN 1GM/250ML 250 ML IV ONE ×2 (09:00→11:00)
[2020-08-28] MEDS: FUROSEMIDE 40 MG/4 ML VIAL IV SCH (10:45)
[2020-08-28] MEDS: LEVOTHYROXINE SODIUM 100 MCG/5 ML INJ IV SCH (10:45)
[2020-08-28] MEDS: FAMOTIDINE (10MG/ML) 2ML VL IV SCH ×2 (10:46→22:44)
[2020-08-28] MEDS: DexAMETHasone SOD PHOS 10MG/1ML VIAL INJ IV SCH (10:46)
[2020-08-28] MEDS: LOSARTAN POTASSIUM 50 MG TAB PO SCH (10:48)
[2020-08-28] MEDS: CITALOPRAM HYDROBR 20 MG TAB PO SCH (10:48)
[2020-08-28] MEDS: buPROPion HCL 75 MG TAB PO SCH ×2 (10:49→22:44)
[2020-08-28] MEDS: amLODIPine BESYLATE 5 MG TAB PO SCH (10:49)
[2020-08-28] MEDS: ASPirin-EC 81 mg tab PO SCH (10:49)
[2020-08-28] MEDS: ENOXAPARIN SOD 40 MG/0.4 ML SYRINGE SC SCH (10:51)
[2020-08-28 16:15] VITALS: BP 122/72
[2020-08-28] MEDS: VANCOMYCIN 1GM/250ML 250 ML IV SCH (18:12)
[2020-08-28] MEDS ORDERED: PPN PER PHARMACY IV NR ×10 (20:00)
[2020-08-28] MEDS: MORPHINE SULF INJ 2 MG/ML SYRINGE 1ML IV PRN (22:43)
[2020-08-29] VITALS: BP 146/75
[2020-08-29] MEDS: VANCOMYCIN 1GM/250ML 250 ML IV SCH ×3 (02:00→17:54)
[2020-08-29] MEDS: ACCU-CHEK COMFORT CURVE STRIP VI SCH ×4 (05:52→17:55)
[2020-08-29] MEDS: MEROPENEM 1GM IVPB 100 ML IV SCH ×3 (05:52→21:36)
[2020-08-29] MEDS: InsuLIN REG 1unit/0.01ml Soln (100units/ml) SC SCH ×4 (06:00→17:55)
[2020-08-29] MEDS: INSULIN LANTUS (GLARGINE) 1 /0.01ml (100units/ml) SC SCH ×2 (06:00→21:39)
[2020-08-29] MEDS: BUDESONIDE (INHALATION) 0.5 MG/2 ML NEB NEB SCH ×2 (07:00→22:46)
[2020-08-29] MEDS: ALBUTEROL SULF 2.5 MG/0.5ML(0.5%) NEB SOLN NEB PRN ×2 (07:00→20:24)
[2020-08-29 08:00] VITALS: BP 146/72
[2020-08-29 08:26] LABS: Basophils # (auto) 0.1 10 ^3/uL (0-0.2); Basophils % (auto) 0.6 % (0.0-2.0); Eosinophils # (auto) 0.1 10 ^3/uL (0-0.8); Eosinophils % (auto) 0.3 % (0.0-7.0); Lymphocytes # (auto) 1.1 10 ^3/uL (0.4-5.4)
[2020-08-29 08:27] LABS: Hematocrit 38.8 % (36.0-46.0); Hemoglobin 12.9 g/dL (12.2-16.2); Lymphocytes % (auto) 5.8 % (10.0-50.0); Mean Corpuscular Hemoglobin 26.5 pg (28.0-32.0); Mean Corpuscular Hgb Conc. 33.2 g/dL (32.0-36.0); Mean Corpuscular Volume 79.7 fL (80.0-100.0); Monocytes # (auto) 0.8 10 ^3/uL (0-1.3); Monocytes % (auto) 4.1 % (0.0-12.0); Neutrophils # (auto) 16.9 10 ^3/uL (1.6-8.6); Neutrophils % (auto) 89.2 % (37.0-80.0); Platelet Count (auto) 321 10^3/uL (140-450); Red Blood Cells 4.86 10^6/uL (4.0-5.20); Red Cell Distribution Width 15.8 % (11.8-14.3)
[2020-08-29] MEDS: LORazepam 2MG/ML-1ML VIAL IV PRN (08:45)
[2020-08-29 08:48] LABS: Potassium 3.6 mmol/L (3.5-5.1)
[2020-08-29 08:54] LABS: Albumin 2.1 g/dL (3.4-5.0); BUN/Creatinine Ratio 40.3; Bilirubin, Total 0.7 mg/dL (0.2-1.0); Calcium 8.7 mg/dL (8.5-10.1); Magnesium 2.2 mg/dL (1.6-2.6); Phosphorus 2.6 mg/dL (2.5-4.90); Total Protein 7.2 g/dL (6.4-8.2)
[2020-08-29] MEDS: FUROSEMIDE 40 MG/4 ML VIAL IV SCH (09:00)
[2020-08-29] MEDS: LEVOTHYROXINE SODIUM 100 MCG/5 ML INJ IV SCH (09:00)
[2020-08-29] MEDS: FAMOTIDINE (10MG/ML) 2ML VL IV SCH ×2 (09:00→21:36)
[2020-08-29] MEDS: DexAMETHasone SOD PHOS 10MG/1ML VIAL INJ IV SCH (09:00)
[2020-08-29] MEDS: ENOXAPARIN SOD 40 MG/0.4 ML SYRINGE SC SCH (09:00)
[2020-08-29] MEDS: ASPirin-EC 81 mg tab PO SCH (10:00)
[2020-08-29] MEDS: MORPHINE SULF INJ 2 MG/ML SYRINGE 1ML IV PRN (10:00)
[2020-08-29] MEDS: amLODIPine BESYLATE 5 MG TAB PO SCH (10:00)
[2020-08-29] MEDS: buPROPion HCL 75 MG TAB PO SCH ×2 (10:00→21:37)
[2020-08-29] MEDS: LOSARTAN POTASSIUM 50 MG TAB PO SCH (10:00)
[2020-08-29] MEDS: CITALOPRAM HYDROBR 20 MG TAB PO SCH (10:00)
[2020-08-29 16:00] VITALS: BP 144/72
[2020-08-29] MEDS ORDERED: PPN PER PHARMACY IV NR ×13 (20:00)
[2020-08-29] MEDS: PROMETHAZINE W/CODEINE 5 ML ORAL SYRUP PO PRN (22:09)
[2020-08-30] MEDS: ACCU-CHEK COMFORT CURVE STRIP VI SCH ×5 (00:22→22:43)
[2020-08-30] MEDS: InsuLIN REG 1unit/0.01ml Soln (100units/ml) SC SCH ×5 (00:28→22:54)
[2020-08-30] MEDS: VANCOMYCIN 1GM/250ML 250 ML IV SCH ×3 (02:00→18:01)
[2020-08-30] MEDS: ALBUTEROL SULF 2.5 MG/0.5ML(0.5%) NEB SOLN NEB PRN ×2 (06:20→20:34)
[2020-08-30] MEDS: BUDESONIDE (INHALATION) 0.5 MG/2 ML NEB NEB SCH ×2 (06:20→23:23)
[2020-08-30] MEDS: INSULIN LANTUS (GLARGINE) 1 /0.01ml (100units/ml) SC SCH ×2 (06:24→22:54)
[2020-08-30 07:36] LABS: Albumin 2.2 g/dL (3.4-5.0); Calcium 8.8 mg/dL (8.5-10.1); Magnesium 2.2 mg/dL (1.6-2.6)
[2020-08-30 07:45] LABS: BUN/Creatinine Ratio 41.7; Bilirubin, Total 0.6 mg/dL (0.2-1.0); Phosphorus 2.6 mg/dL (2.5-4.90); Potassium 3.4 mmol/L (3.5-5.1); Total Protein 7.1 g/dL (6.4-8.2)
[2020-08-30 08:00] VITALS: BP 137/76
[2020-08-30] MEDS: FUROSEMIDE 40 MG/4 ML VIAL IV SCH (08:33)
[2020-08-30] MEDS: ENOXAPARIN SOD 40 MG/0.4 ML SYRINGE SC SCH (08:34)
[2020-08-30] MEDS: LEVOTHYROXINE SODIUM 100 MCG/5 ML INJ IV SCH (08:34)
[2020-08-30] MEDS: DexAMETHasone SOD PHOS 10MG/1ML VIAL INJ IV SCH (08:34)
[2020-08-30] MEDS: FAMOTIDINE (10MG/ML) 2ML VL IV SCH ×2 (08:34→22:35)
[2020-08-30] MEDS ORDERED: POTASSIUM CHL 20MEQ/100ML 100 ML IV ONE ×2 (09:00→16:45)
[2020-08-30] MEDS: LOSARTAN POTASSIUM 50 MG TAB PO SCH (10:00)
[2020-08-30] MEDS: CITALOPRAM HYDROBR 20 MG TAB PO SCH (10:00)
[2020-08-30] MEDS: amLODIPine BESYLATE 5 MG TAB PO SCH (10:00)
[2020-08-30] MEDS: ASPirin-EC 81 mg tab PO SCH (10:00)
[2020-08-30] MEDS: buPROPion HCL 75 MG TAB PO SCH ×2 (10:00→22:00)
[2020-08-30 10:09] VITALS: BP 145/73
[2020-08-30 10:22] LABS: White Blood Cell 16.7 10^3/uL (4.4-10.8)
[2020-08-30 10:24] VITALS: BP 112/65
[2020-08-30 10:25] LABS: Hemoglobin 12.7 g/dL (12.2-16.2); Mean Corpuscular Hemoglobin 26.3 pg (28.0-32.0); Mean Corpuscular Hgb Conc. 32.7 g/dL (32.0-36.0); Mean Corpuscular Volume 80.3 fL (80.0-100.0); Platelet Count (auto) 335 10^3/uL (140-450); Red Blood Cells 4.85 10^6/uL (4.0-5.20); Red Cell Distribution Width 15.8 % (11.8-14.3)
[2020-08-30 11:00] LABS: Basophils % (manual) 0 (0.0-2.0); Blast Cells 0; Metamyelocytes % 0; Myelocytes % 0; Promyelocytes % 0; Reactive Lymphocytes 0
[2020-08-30 12:29] LABS: Hepatitis A Ab IgM Negative; Hepatitis B Core IgM Negative
[2020-08-30 12:30] LABS: Hepatitis B Surface Antigen Negative (Negative); Hepatitis C Antibody Negative (Negative)
[2020-08-30 12:40] VITALS: BP 139/71
[2020-08-30 13:17] LABS: Band Neutrophils % (manual) 7; Eosinophils % (manual) 1 (0-7); Lymphocytes % (manual) 6 (10.0-50.0); Monocytes % (manual) 3 (0-12)
[2020-08-30] MEDS: MEROPENEM 1GM IVPB 100 ML IV SCH ×2 (14:00→22:35)
[2020-08-30 16:09] VITALS: BP 158/81
[2020-08-30] MEDS ORDERED: PPN PER PHARMACY IV NR ×10 (20:00)
[2020-08-30] MEDS: MORPHINE SULF INJ 2 MG/ML SYRINGE 1ML IV PRN (23:14)
[2020-08-31] VITALS (49 sets, daily range): BP systolic 80–151; BP diastolic 41–85
[2020-08-31] MEDS: VANCOMYCIN 1GM/250ML 250 ML IV SCH ×3 (01:53→18:41)
[2020-08-31] MEDS: MEROPENEM 1GM IVPB 100 ML IV SCH ×3 (06:10→22:15)
[2020-08-31] MEDS: ACCU-CHEK COMFORT CURVE STRIP VI SCH ×3 (06:10→18:00)
[2020-08-31] MEDS: INSULIN LANTUS (GLARGINE) 1 /0.01ml (100units/ml) SC SCH ×2 (06:17→22:21)
[2020-08-31] MEDS: InsuLIN REG 1unit/0.01ml Soln (100units/ml) SC SCH ×3 (06:21→18:41)
[2020-08-31] MEDS: BUDESONIDE (INHALATION) 0.5 MG/2 ML NEB NEB SCH ×2 (06:55→22:35)
[2020-08-31] MEDS: ALBUTEROL SULF 2.5 MG/0.5ML(0.5%) NEB SOLN NEB PRN (06:55)
[2020-08-31 08:05] LABS: Basophils # (auto) 0 10 ^3/uL (0-0.2); Basophils % (auto) 0.2 % (0.0-2.0); Eosinophils # (auto) 0 10 ^3/uL (0-0.8); Hemoglobin 12.8 g/dL (12.2-16.2); Monocytes # (auto) 0.5 10 ^3/uL (0-1.3); Red Cell Distribution Width 15.5 % (11.8-14.3)
[2020-08-31 08:07] LABS: Hematocrit 38.4 % (36.0-46.0); Lymphocytes # (auto) 0.8 10 ^3/uL (0.4-5.4); Lymphocytes % (auto) 5.8 % (10.0-50.0); Mean Corpuscular Hemoglobin 26.8 pg (28.0-32.0); Mean Corpuscular Hgb Conc. 33.4 g/dL (32.0-36.0); Mean Corpuscular Volume 80.3 fL (80.0-100.0); Monocytes % (auto) 3.8 % (0.0-12.0); Neutrophils # (auto) 12.5 10 ^3/uL (1.6-8.6); Neutrophils % (auto) 90.2 % (37.0-80.0); Nucleated Red Blood Cells % 0.1 %; Platelet Count (auto) 308 10^3/uL (140-450); Red Blood Cells 4.78 10^6/uL (4.0-5.20); White Blood Cell 13.9 10^3/uL (4.4-10.8)
[2020-08-31 08:11] LABS: Potassium 4.3 mmol/L (3.5-5.1)
[2020-08-31 08:24] LABS: Albumin 2.3 g/dL (3.4-5.0); BUN/Creatinine Ratio 40.4; Bilirubin, Total 0.5 mg/dL (0.2-1.0); Calcium 9.1 mg/dL (8.5-10.1); Magnesium 2.3 mg/dL (1.6-2.6); Phosphorus 3.2 mg/dL (2.5-4.90); Total Protein 7.4 g/dL (6.4-8.2)
[2020-08-31] MEDS: FAMOTIDINE (10MG/ML) 2ML VL IV SCH ×2 (09:47→22:16)
[2020-08-31] MEDS: LEVOTHYROXINE SODIUM 100 MCG/5 ML INJ IV SCH (09:47)
[2020-08-31] MEDS: FUROSEMIDE 40 MG/4 ML VIAL IV SCH (09:48)
[2020-08-31] MEDS: DexAMETHasone SOD PHOS 10MG/1ML VIAL INJ IV SCH (09:48)
[2020-08-31] MEDS: ENOXAPARIN SOD 40 MG/0.4 ML SYRINGE SC SCH (09:48)
[2020-08-31] MEDS: buPROPion HCL 75 MG TAB PO SCH ×2 (10:00→22:00)
[2020-08-31] MEDS: amLODIPine BESYLATE 5 MG TAB PO SCH (10:00)
[2020-08-31] MEDS: ASPirin-EC 81 mg tab PO SCH (10:00)
[2020-08-31] MEDS: CITALOPRAM HYDROBR 20 MG TAB PO SCH (10:00)
[2020-08-31] MEDS: LOSARTAN POTASSIUM 50 MG TAB PO SCH (10:00)
[2020-08-31] MEDS ORDERED: SUCCINYLCHOLINE CHLORIDE 20 MG/ML 10ML VIAL IV ONE ×2 (11:21→12:45)
[2020-08-31] MEDS ORDERED: ETOMIDATE (2MG/ML) 20ML VIAL IV ONE ×2 (11:21→12:45)
[2020-08-31] MEDS ORDERED: ROCURONIUM 10MG/ML 10ML VIAL IV ONE (11:21)
[2020-08-31] MEDS ORDERED: fentaNYL Drip 2500mCg/250mlNS 250 ML IV ONE (11:49)
[2020-08-31] MEDS ORDERED: MIDAZOLAM DRIP 50 mg/50mL 50 ML IV ONE ×2 (11:50→12:44)
[2020-08-31] MEDS ORDERED: PROPOFOL 100 ML IV ONE ×2 (11:50→13:24)
[2020-08-31] MEDS: LORazepam 2MG/ML-1ML VIAL IV PRN (12:37)
[2020-08-31] MEDS: fentaNYL Drip 2500mCg/250mlNS 250 ML IV SCH ×2 (13:00→23:46)
[2020-08-31] MEDS ORDERED: NOREPINEPHRINE 8 MG/250ML KIT 250 ML IV ONE (13:24)
[2020-08-31] MEDS: MIDAZOLAM DRIP 50 mg/50mL 50 ML IV SCH ×4 (13:49→23:45)
[2020-08-31] MEDS: PROPOFOL 100 ML IV SCH (13:49)
[2020-08-31] MEDS: NOREPINEPHRINE 8 MG/250ML KIT 250 ML IV SCH (14:55)
[2020-08-31] MEDS: ROCURONIUM BROMIDE 1,000 MG in D5W 5% 150 ML IV SCH (15:23)
[2020-08-31 15:47] LABS: INR 1.03 (0.9-1.15); Partial Thromboplastin Time 24.3 sec (23.0-31.2)
[2020-08-31] MEDS ORDERED: PPN PER PHARMACY IV NR ×11 (20:00)
[2020-08-31] MEDS: SODIUM CHLOR 0.9% PF (SALINE LOCK) 10ML VIAL/SYR IV SCH (22:16)
[2020-09-01] VITALS (100 sets, daily range): BP systolic 86–127; BP diastolic 47–64
[2020-09-01] MEDS: ALBUTEROL SULF 2.5 MG/0.5ML(0.5%) NEB SOLN NEB PRN ×3 (00:02→22:39)
[2020-09-01] MEDS: ACCU-CHEK COMFORT CURVE STRIP VI SCH ×6 (02:31→22:02)
[2020-09-01 03:28] LABS: Albumin 2.1 g/dL (3.4-5.0); Calcium 8.6 mg/dL (8.5-10.1); Magnesium 2.4 mg/dL (1.6-2.6); Potassium 5.3 mmol/L (3.5-5.1)
[2020-09-01] MEDS: VANCOMYCIN 1GM/250ML 250 ML IV SCH ×3 (03:30→17:38)
[2020-09-01 03:32] LABS: BUN/Creatinine Ratio 36.7; Bilirubin, Total 0.3 mg/dL (0.2-1.0); Phosphorus 4.6 mg/dL (2.5-4.90); Total Protein 6.4 g/dL (6.4-8.2)
[2020-09-01] MEDS: InsuLIN REG 1unit/0.01ml Soln (100units/ml) SC SCH ×6 (05:47→22:00)
[2020-09-01] MEDS: INSULIN LANTUS (GLARGINE) 1 /0.01ml (100units/ml) SC SCH ×2 (05:49→22:30)
[2020-09-01] MEDS: MEROPENEM 1GM IVPB 100 ML IV SCH ×3 (05:54→22:01)
[2020-09-01] MEDS: BUDESONIDE (INHALATION) 0.5 MG/2 ML NEB NEB SCH ×2 (06:05→22:00)
[2020-09-01] MEDS: PROPOFOL 100 ML IV SCH ×3 (06:28→23:00)
[2020-09-01] MEDS: NOREPINEPHRINE 8 MG/250ML KIT 250 ML IV SCH (06:52)
[2020-09-01] MEDS: MIDAZOLAM DRIP 50 mg/50mL 50 ML IV SCH (06:53)
[2020-09-01] MEDS ORDERED: INSULIN LANTUS (GLARGINE) 1 /0.01ml (100units/ml) SC ONE (09:15)
[2020-09-01] MEDS: buPROPion HCL 75 MG TAB PO SCH ×2 (09:53→22:00)
[2020-09-01] MEDS: CITALOPRAM HYDROBR 20 MG TAB PO SCH (09:53)
[2020-09-01] MEDS: amLODIPine BESYLATE 5 MG TAB PO SCH (09:53)
[2020-09-01] MEDS: LOSARTAN POTASSIUM 50 MG TAB PO SCH (09:53)
[2020-09-01] MEDS: SODIUM CHLOR 0.9% PF (SALINE LOCK) 10ML VIAL/SYR IV SCH ×2 (09:53→22:01)
[2020-09-01] MEDS: FAMOTIDINE (10MG/ML) 2ML VL IV SCH ×2 (10:00→22:01)
[2020-09-01] MEDS: FUROSEMIDE 40 MG/4 ML VIAL IV SCH (10:04)
[2020-09-01] MEDS: ENOXAPARIN SOD 40 MG/0.4 ML SYRINGE SC SCH (10:30)
[2020-09-01] MEDS: ASPirin-EC 81 mg tab PO SCH (10:30)
[2020-09-01] MEDS: LEVOTHYROXINE SODIUM 100 MCG/5 ML INJ IV SCH (10:30)
[2020-09-01 12:30] LABS: Hematocrit 38.1 % (36.0-46.0); Hemoglobin 12.3 g/dL (12.2-16.2); Mean Corpuscular Hgb Conc. 32.3 g/dL (32.0-36.0); Mean Corpuscular Volume 83.7 fL (80.0-100.0); Platelet Count (auto) 297 10^3/uL (140-450); Red Blood Cells 4.55 10^6/uL (4.0-5.20); Red Cell Distribution Width 15.6 % (11.8-14.3); White Blood Cell 17.5 10^3/uL (4.4-10.8)
[2020-09-01 12:37] LABS: Basophils % (manual) 0 (0.0-2.0); Blast Cells 0; Promyelocytes % 0; Reactive Lymphocytes 0
[2020-09-01] MEDS ORDERED: TPN PER PHARMACY 0 ML IV SCH (13:30)
[2020-09-01 13:32] LABS: Band Neutrophils % (manual) 5; Eosinophils % (manual) 1 (0-7); Lymphocytes % (manual) 3 (10.0-50.0); Metamyelocytes % 2; Monocytes % (manual) 2 (0-12); Myelocytes % 1
[2020-09-01] MEDS: ROCURONIUM BROMIDE 1,000 MG in D5W 5% 150 ML IV SCH (13:48)
[2020-09-01] MEDS ORDERED: PHENYLEPHRINE IV 250 ML IV ONE (19:48)
[2020-09-01] MEDS ORDERED: TPN PER PHARMACY IV NR ×6 (20:00)
[2020-09-02] VITALS (100 sets, daily range): BP systolic 77–135; BP diastolic 39–68
[2020-09-02] MEDS: fentaNYL Drip 2500mCg/250mlNS 250 ML IV SCH
[2020-09-02] MEDS: MIDAZOLAM DRIP 50 mg/50mL 50 ML IV SCH ×5 (01:12→18:35)
[2020-09-02] MEDS: VANCOMYCIN 1GM/250ML 250 ML IV SCH ×3 (01:37→18:19)
[2020-09-02] MEDS: ACCU-CHEK COMFORT CURVE STRIP VI SCH ×6 (02:00→22:30)
[2020-09-02] MEDS: InsuLIN REG 1unit/0.01ml Soln (100units/ml) SC SCH ×6 (02:00→22:30)
[2020-09-02] MEDS: NOREPINEPHRINE 8 MG/250ML KIT 250 ML IV SCH (04:30)
[2020-09-02 05:16] LABS: Hemoglobin 11.7 g/dL (12.2-16.2); Mean Corpuscular Hgb Conc. 32.1 g/dL (32.0-36.0)
[2020-09-02 05:20] LABS: Hematocrit 36.6 % (36.0-46.0); Mean Corpuscular Hemoglobin 26.5 pg (28.0-32.0); Mean Corpuscular Volume 82.5 fL (80.0-100.0); Platelet Count (auto) 246 10^3/uL (140-450); Red Blood Cells 4.44 10^6/uL (4.0-5.20); Red Cell Distribution Width 15.6 % (11.8-14.3)
[2020-09-02 05:33] LABS: Albumin 1.8 g/dL (3.4-5.0); Calcium 8.3 mg/dL (8.5-10.1)
[2020-09-02 05:36] LABS: Bilirubin, Total 0.4 mg/dL (0.2-1.0); Phosphorus 1.8 mg/dL (2.5-4.90); Total Protein 6.1 g/dL (6.4-8.2)
[2020-09-02 05:46] LABS: Basophils % (manual) 0 (0.0-2.0); Blast Cells 0; Monocytes % (manual) 0 (0-12); Promyelocytes % 0; Reactive Lymphocytes 0
[2020-09-02] MEDS: MEROPENEM 1GM IVPB 100 ML IV SCH ×3 (06:05→22:25)
[2020-09-02] MEDS: INSULIN LANTUS (GLARGINE) 1 /0.01ml (100units/ml) SC SCH ×2 (06:07→22:31)
[2020-09-02] MEDS: PROPOFOL 100 ML IV SCH ×5 (06:09→23:15)
[2020-09-02] MEDS: BUDESONIDE (INHALATION) 0.5 MG/2 ML NEB NEB SCH ×2 (07:00→18:38)
[2020-09-02 07:10] LABS: Band Neutrophils % (manual) 3; Eosinophils % (manual) 8 (0-7); Lymphocytes % (manual) 4 (10.0-50.0); Metamyelocytes % 2; Myelocytes % 1
[2020-09-02] MEDS ORDERED: SODIUM PHOSP 40 MEQ in D5W 5% 250 ML IV ONE (09:15)
[2020-09-02] MEDS: LOSARTAN POTASSIUM 50 MG TAB PO SCH (09:25)
[2020-09-02] MEDS: SODIUM CHLOR 0.9% PF (SALINE LOCK) 10ML VIAL/SYR IV SCH ×2 (09:25→22:28)
[2020-09-02] MEDS: FUROSEMIDE 40 MG/4 ML VIAL IV SCH (09:25)
[2020-09-02] MEDS: CITALOPRAM HYDROBR 20 MG TAB PO SCH (09:25)
[2020-09-02] MEDS: FAMOTIDINE (10MG/ML) 2ML VL IV SCH ×2 (09:25→22:25)
[2020-09-02] MEDS: LEVOTHYROXINE SODIUM 100 MCG/5 ML INJ IV SCH (09:25)
[2020-09-02] MEDS: ASPirin-EC 81 mg tab PO SCH (09:25)
[2020-09-02] MEDS: amLODIPine BESYLATE 5 MG TAB PO SCH (09:26)
[2020-09-02] MEDS: buPROPion HCL 75 MG TAB PO SCH ×2 (09:27→22:00)
[2020-09-02] MEDS: ENOXAPARIN SOD 40 MG/0.4 ML SYRINGE SC SCH (10:04)
[2020-09-02] MEDS: ALBUTEROL SULF 2.5 MG/0.5ML(0.5%) NEB SOLN NEB PRN (18:38)
[2020-09-02] MEDS ORDERED: TPN PER PHARMACY IV NR ×8 (20:00)
[2020-09-03] VITALS (98 sets, daily range): BP systolic 72–137; BP diastolic 37–75
[2020-09-03] MEDS: fentaNYL Drip 2500mCg/250mlNS 250 ML IV SCH ×2 (00:28→12:41)
[2020-09-03] MEDS: NOREPINEPHRINE 8 MG/250ML KIT 250 ML IV SCH ×2 (00:50→19:45)
[2020-09-03] MEDS: InsuLIN REG 1unit/0.01ml Soln (100units/ml) SC SCH ×6 (02:00→23:43)
[2020-09-03] MEDS: ACCU-CHEK COMFORT CURVE STRIP VI SCH ×6 (02:00→23:44)
[2020-09-03] MEDS: VANCOMYCIN 1GM/250ML 250 ML IV SCH ×2 (02:23→10:11)
[2020-09-03 02:54] LABS: Basophils # (auto) 0 10 ^3/uL (0-0.2); Basophils % (auto) 0.4 % (0.0-2.0); Eosinophils # (auto) 1.1 10 ^3/uL (0-0.8); Eosinophils % (auto) 8.4 % (0.0-7.0); Hematocrit 33.6 % (36.0-46.0); Hemoglobin 10.9 g/dL (12.2-16.2); Lymphocytes # (auto) 1.2 10 ^3/uL (0.4-5.4); Lymphocytes % (auto) 9.8 % (10.0-50.0); Mean Corpuscular Hemoglobin 26.8 pg (28.0-32.0); Mean Corpuscular Hgb Conc. 32.5 g/dL (32.0-36.0); Mean Corpuscular Volume 82.4 fL (80.0-100.0); Monocytes # (auto) 0.3 10 ^3/uL (0-1.3); Monocytes % (auto) 2.6 % (0.0-12.0); Neutrophils # (auto) 9.9 10 ^3/uL (1.6-8.6); Neutrophils % (auto) 78.8 % (37.0-80.0); Platelet Count (auto) 200 10^3/uL (140-450); Red Blood Cells 4.08 10^6/uL (4.0-5.20); Red Cell Distribution Width 16.2 % (11.8-14.3); White Blood Cell 12.6 10^3/uL (4.4-10.8)
[2020-09-03] MEDS: MIDAZOLAM DRIP 50 mg/50mL 50 ML IV SCH ×5 (03:00→18:53)
[2020-09-03 03:03] LABS: Albumin 1.6 g/dL (3.4-5.0); Magnesium 2.1 mg/dL (1.6-2.6); Potassium 3.2 mmol/L (3.5-5.1)
[2020-09-03 03:10] LABS: Bilirubin, Total 0.3 mg/dL (0.2-1.0); Phosphorus 2.4 mg/dL (2.5-4.90); Pre Albumin 10.4 mg/dL (20.0-40.0); Total Protein 5.6 g/dL (6.4-8.2)
[2020-09-03] MEDS: MEROPENEM 1GM IVPB 100 ML IV SCH ×2 (06:14→14:09)
[2020-09-03] MEDS: INSULIN LANTUS (GLARGINE) 1 /0.01ml (100units/ml) SC SCH ×2 (06:17→22:00)
[2020-09-03] MEDS: PROPOFOL 100 ML IV SCH ×2 (06:35→14:03)
[2020-09-03] MEDS ORDERED: POTASSIUM CHL 20MEQ/100ML 100 ML IV ONE (08:00)
[2020-09-03] MEDS ORDERED: ACCU-CHEK COMFORT CURVE STRIP VI SCH (08:00)
[2020-09-03] MEDS ORDERED: InsuLIN REG 1unit/0.01ml Soln (100units/ml) SC SCH ×2 (08:00→12:00)
[2020-09-03] MEDS ORDERED: DEXTROSE (50%) 50ML SYRG IV SCH (08:00)
[2020-09-03] MEDS: buPROPion HCL 75 MG TAB PO SCH ×2 (10:00→20:29)
[2020-09-03] MEDS: LOSARTAN POTASSIUM 50 MG TAB PO SCH (10:00)
[2020-09-03] MEDS: CITALOPRAM HYDROBR 20 MG TAB PO SCH (10:00)
[2020-09-03] MEDS: amLODIPine BESYLATE 5 MG TAB PO SCH (10:00)
[2020-09-03] MEDS: SODIUM CHLOR 0.9% PF (SALINE LOCK) 10ML VIAL/SYR IV SCH ×2 (10:12→20:29)
[2020-09-03] MEDS: FUROSEMIDE 40 MG/4 ML VIAL IV SCH (10:12)
[2020-09-03] MEDS: FAMOTIDINE (10MG/ML) 2ML VL IV SCH ×2 (10:12→20:29)
[2020-09-03] MEDS: LEVOTHYROXINE SODIUM 100 MCG/5 ML INJ IV SCH (10:12)
[2020-09-03] MEDS: ASPirin-EC 81 mg tab PO SCH (10:12)
[2020-09-03] MEDS: ENOXAPARIN SOD 40 MG/0.4 ML SYRINGE SC SCH (10:13)
[2020-09-03] MEDS ORDERED: POTASSIUM PHOSP 22MEQ(15MMOLE) in NS 100 ML IV ONE (11:00)
[2020-09-03] MEDS: ACETAMINOPHEN 325 MG TAB PO PRN (13:05)
[2020-09-03] MEDS ORDERED: TPN PER PHARMACY IV NR ×10 (20:00)
[2020-09-03] MEDS: BUDESONIDE (INHALATION) 0.5 MG/2 ML NEB NEB SCH (21:36)
[2020-09-03] MEDS: ALBUTEROL SULF 2.5 MG/0.5ML(0.5%) NEB SOLN NEB PRN (21:37)
[2020-09-04] VITALS (100 sets, daily range): BP systolic 83–134; BP diastolic 40–71
[2020-09-04] MEDS: PROPOFOL 100 ML IV SCH ×5 (01:00→23:54)
[2020-09-04] MEDS: fentaNYL Drip 2500mCg/250mlNS 250 ML IV SCH ×2 (02:00→14:16)
[2020-09-04] MEDS: ACCU-CHEK COMFORT CURVE STRIP VI SCH ×4 (04:00→16:00)
[2020-09-04] MEDS: InsuLIN REG 1unit/0.01ml Soln (100units/ml) SC SCH ×4 (04:00→16:45)
[2020-09-04 04:39] LABS: Hematocrit 34.3 % (36.0-46.0); Hemoglobin 11.2 g/dL (12.2-16.2); Mean Corpuscular Hgb Conc. 32.7 g/dL (32.0-36.0); Mean Corpuscular Volume 82.7 fL (80.0-100.0); Platelet Count (auto) 210 10^3/uL (140-450); Red Blood Cells 4.15 10^6/uL (4.0-5.20); Red Cell Distribution Width 16.3 % (11.8-14.3); White Blood Cell 12.4 10^3/uL (4.4-10.8)
[2020-09-04 04:49] LABS: Basophils % (manual) 0 (0.0-2.0); Blast Cells 0; Metamyelocytes % 0; Monocytes % (manual) 0 (0-12); Promyelocytes % 0
[2020-09-04] MEDS: INSULIN LANTUS (GLARGINE) 1 /0.01ml (100units/ml) SC SCH ×2 (04:52→22:00)
[2020-09-04 04:55] LABS: Potassium 3.6 mmol/L (3.5-5.1)
[2020-09-04 05:05] LABS: Albumin 1.6 g/dL (3.4-5.0); Bilirubin, Total 0.4 mg/dL (0.2-1.0); Magnesium 2.2 mg/dL (1.6-2.6); Phosphorus 2.8 mg/dL (2.5-4.90); Total Protein 6.1 g/dL (6.4-8.2)
[2020-09-04 05:17] LABS: Band Neutrophils % (manual) 19; Eosinophils % (manual) 7 (0-7); Lymphocytes % (manual) 8 (10.0-50.0); Myelocytes % 3; Reactive Lymphocytes 1
[2020-09-04] MEDS: MIDAZOLAM DRIP 50 mg/50mL 50 ML IV SCH ×4 (06:51→23:24)
[2020-09-04] MEDS: FUROSEMIDE 40 MG/4 ML VIAL IV SCH (09:59)
[2020-09-04] MEDS: FAMOTIDINE (10MG/ML) 2ML VL IV SCH ×2 (09:59→22:00)
[2020-09-04] MEDS: SODIUM CHLOR 0.9% PF (SALINE LOCK) 10ML VIAL/SYR IV SCH ×2 (10:00→22:00)
[2020-09-04] MEDS: amLODIPine BESYLATE 5 MG TAB PO SCH (10:00)
[2020-09-04] MEDS: BUDESONIDE (INHALATION) 0.5 MG/2 ML NEB NEB SCH (10:00)
[2020-09-04] MEDS: LEVOTHYROXINE SODIUM 100 MCG/5 ML INJ IV SCH (10:00)
[2020-09-04] MEDS: buPROPion HCL 75 MG TAB PO SCH ×2 (10:00→22:00)
[2020-09-04] MEDS: LOSARTAN POTASSIUM 50 MG TAB PO SCH (10:00)
[2020-09-04] MEDS: CITALOPRAM HYDROBR 20 MG TAB PO SCH (10:00)
[2020-09-04] MEDS: ASPirin-EC 81 mg tab PO SCH (10:08)
[2020-09-04] MEDS: ROCURONIUM 10MG/ML 10ML VIAL IV PRN (18:55)
[2020-09-04] MEDS ORDERED: TPN PER PHARMACY IV NR ×9 (20:00)
[2020-09-05] VITALS (99 sets, daily range): BP systolic 85–152; BP diastolic 41–74
[2020-09-05] MEDS: NOREPINEPHRINE 8 MG/250ML KIT 250 ML IV SCH ×2 (00:10→11:19)
[2020-09-05] MEDS: PROPOFOL 100 ML IV SCH ×3 (00:41→11:18)
[2020-09-05] MEDS: fentaNYL Drip 2500mCg/250mlNS 250 ML IV SCH ×3 (00:41→23:18)
[2020-09-05] MEDS: MIDAZOLAM DRIP 50 mg/50mL 50 ML IV SCH ×5 (00:41→22:57)
[2020-09-05 04:30] LABS: Basophils # (auto) 0.1 10 ^3/uL (0-0.2); Basophils % (auto) 0.8 % (0.0-2.0); Eosinophils # (auto) 0.8 10 ^3/uL (0-0.8); Eosinophils % (auto) 8.3 % (0.0-7.0); Hematocrit 30.7 % (36.0-46.0); Hemoglobin 10.4 g/dL (12.2-16.2); Lymphocytes # (auto) 0.9 10 ^3/uL (0.4-5.4); Lymphocytes % (auto) 9.9 % (10.0-50.0); Mean Corpuscular Hemoglobin 28.6 pg (28.0-32.0); Mean Corpuscular Hgb Conc. 33.8 g/dL (32.0-36.0); Mean Corpuscular Volume 84.6 fL (80.0-100.0); Monocytes # (auto) 0.3 10 ^3/uL (0-1.3); Monocytes % (auto) 3.8 % (0.0-12.0); Neutrophils # (auto) 7.1 10 ^3/uL (1.6-8.6); Neutrophils % (auto) 77.2 % (37.0-80.0); Nucleated Red Blood Cells % 0.2 %; Platelet Count (auto) 168 10^3/uL (140-450); Red Blood Cells 3.63 10^6/uL (4.0-5.20); Red Cell Distribution Width 16.9 % (11.8-14.3); White Blood Cell 9.2 10^3/uL (4.4-10.8)
[2020-09-05] MEDS: ACCU-CHEK COMFORT CURVE STRIP VI SCH ×4 (06:00→17:53)
[2020-09-05] MEDS: InsuLIN REG 1unit/0.01ml Soln (100units/ml) SC SCH ×4 (06:00→17:53)
[2020-09-05] MEDS: INSULIN LANTUS (GLARGINE) 1 /0.01ml (100units/ml) SC SCH ×2 (07:00→22:00)
[2020-09-05 08:04] LABS: Potassium 4.7 mmol/L (3.5-5.1)
[2020-09-05] MEDS: ROCURONIUM 10MG/ML 10ML VIAL IV PRN (08:38)
[2020-09-05 08:39] LABS: Albumin 1.6 g/dL (3.4-5.0); BUN/Creatinine Ratio 56.9; Bilirubin, Total 0.3 mg/dL (0.2-1.0); Calcium 8.3 mg/dL (8.5-10.1); Magnesium 2.5 mg/dL (1.6-2.6); Phosphorus 3.7 mg/dL (2.5-4.90); Total Protein 6.6 g/dL (6.4-8.2)
[2020-09-05] MEDS: ROCURONIUM BROMIDE 1,000 MG in D5W 5% 150 ML IV SCH (09:58)
[2020-09-05] MEDS: CITALOPRAM HYDROBR 20 MG TAB PO SCH (10:00)
[2020-09-05] MEDS: LOSARTAN POTASSIUM 50 MG TAB PO SCH (10:00)
[2020-09-05] MEDS: buPROPion HCL 75 MG TAB PO SCH ×2 (10:00→22:00)
[2020-09-05] MEDS: amLODIPine BESYLATE 5 MG TAB PO SCH (10:00)
[2020-09-05] MEDS: FUROSEMIDE 40 MG/4 ML VIAL IV SCH (10:14)
[2020-09-05] MEDS: LEVOTHYROXINE SODIUM 100 MCG/5 ML INJ IV SCH (10:14)
[2020-09-05] MEDS: FAMOTIDINE (10MG/ML) 2ML VL IV SCH ×2 (10:14→22:07)
[2020-09-05] MEDS: SODIUM CHLOR 0.9% PF (SALINE LOCK) 10ML VIAL/SYR IV SCH ×2 (10:14→22:05)
[2020-09-05] MEDS: ASPirin-EC 81 mg tab PO SCH (10:15)
[2020-09-05] MEDS: BUDESONIDE (INHALATION) 0.5 MG/2 ML NEB NEB SCH ×2 (10:21→22:00)
[2020-09-05] MEDS ORDERED: TPN PER PHARMACY IV NR ×10 (20:00)
[2020-09-05] MEDS: ALBUTEROL SULF 2.5 MG/0.5ML(0.5%) NEB SOLN NEB PRN (23:05)
[2020-09-06] VITALS (99 sets, daily range): BP systolic 80–158; BP diastolic 36–76
[2020-09-06] MEDS: InsuLIN REG 1unit/0.01ml Soln (100units/ml) SC SCH ×4 (00:18→18:04)
[2020-09-06] MEDS: ACCU-CHEK COMFORT CURVE STRIP VI SCH ×4 (00:20→18:04)
[2020-09-06] MEDS: MIDAZOLAM DRIP 50 mg/50mL 50 ML IV SCH ×3 (02:44→20:06)
[2020-09-06 04:07] LABS: Albumin 1.5 g/dL (3.4-5.0); Potassium 4.6 mmol/L (3.5-5.1)
[2020-09-06 04:09] LABS: Bilirubin, Total 0.3 mg/dL (0.2-1.0); Phosphorus 2.4 mg/dL (2.5-4.90); Total Protein 6.2 g/dL (6.4-8.2)
[2020-09-06] MEDS: NOREPINEPHRINE 8 MG/250ML KIT 250 ML IV SCH (05:15)
[2020-09-06] MEDS: ROCURONIUM BROMIDE 1,000 MG in D5W 5% 150 ML IV SCH (05:16)
[2020-09-06] MEDS: INSULIN LANTUS (GLARGINE) 1 /0.01ml (100units/ml) SC SCH ×2 (06:58→22:24)
[2020-09-06] MEDS: ASPirin-EC 81 mg tab PO SCH (08:43)
[2020-09-06] MEDS: LEVOTHYROXINE SODIUM 100 MCG/5 ML INJ IV SCH (08:43)
[2020-09-06] MEDS: FUROSEMIDE 40 MG/4 ML VIAL IV SCH (08:45)
[2020-09-06] MEDS: SODIUM CHLOR 0.9% PF (SALINE LOCK) 10ML VIAL/SYR IV SCH ×2 (08:46→22:22)
[2020-09-06] MEDS: FAMOTIDINE (10MG/ML) 2ML VL IV SCH ×2 (08:46→22:22)
[2020-09-06] MEDS: CITALOPRAM HYDROBR 20 MG TAB PO SCH (08:48)
[2020-09-06] MEDS: LOSARTAN POTASSIUM 50 MG TAB PO SCH (08:48)
[2020-09-06] MEDS: amLODIPine BESYLATE 5 MG TAB PO SCH (08:49)
[2020-09-06] MEDS: buPROPion HCL 75 MG TAB PO SCH ×2 (08:49→22:00)
[2020-09-06] MEDS: PROPOFOL 100 ML IV SCH ×2 (13:45→23:35)
[2020-09-06 14:35] LABS: Lymphocytes # (auto) 0.7 10 ^3/uL (0.4-5.4); Mean Corpuscular Hgb Conc. 31.6 g/dL (32.0-36.0); Neutrophils # (auto) 8.4 10 ^3/uL (1.6-8.6); Red Blood Cells 3.92 10^6/uL (4.0-5.20)
[2020-09-06 14:37] LABS: Basophils # (auto) 0.1 10 ^3/uL (0-0.2); Basophils % (auto) 0.7 % (0.0-2.0); Eosinophils # (auto) 0.4 10 ^3/uL (0-0.8); Eosinophils % (auto) 4.4 % (0.0-7.0); Hematocrit 32.8 % (36.0-46.0); Hemoglobin 10.3 g/dL (12.2-16.2); Mean Corpuscular Hemoglobin 26.4 pg (28.0-32.0); Mean Corpuscular Volume 83.7 fL (80.0-100.0); Monocytes # (auto) 0.6 10 ^3/uL (0-1.3); Monocytes % (auto) 5.8 % (0.0-12.0); Neutrophils % (auto) 82.1 % (37.0-80.0); Nucleated Red Blood Cells % 0.2 %; Platelet Count (auto) 160 10^3/uL (140-450); White Blood Cell 10.2 10^3/uL (4.4-10.8)
[2020-09-06 14:52] LABS: BUN/Creatinine Ratio 60.9; Calcium 8.1 mg/dL (8.5-10.1); Potassium 4.7 mmol/L (3.5-5.1)
[2020-09-06] MEDS: BUDESONIDE (INHALATION) 0.5 MG/2 ML NEB NEB SCH ×2 (16:51→20:12)
[2020-09-06] MEDS: ROCURONIUM 10MG/ML 10ML VIAL IV PRN ×2 (18:35→22:28)
[2020-09-06] MEDS ORDERED: TPN PER PHARMACY IV NR ×9 (20:00)
[2020-09-06] MEDS: ALBUTEROL SULF 2.5 MG/0.5ML(0.5%) NEB SOLN NEB PRN (20:13)
[2020-09-07] VITALS (99 sets, daily range): BP systolic 104–148; BP diastolic 46–70
[2020-09-07] MEDS: ACCU-CHEK COMFORT CURVE STRIP VI SCH ×4 (01:00→18:16)
[2020-09-07] MEDS: InsuLIN REG 1unit/0.01ml Soln (100units/ml) SC SCH ×4 (01:01→18:16)
[2020-09-07 04:17] LABS: Eosinophils # (auto) 0.4 10 ^3/uL (0-0.8); Hemoglobin 8.6 g/dL (12.2-16.2); Lymphocytes # (auto) 0.9 10 ^3/uL (0.4-5.4); Nucleated Red Blood Cells % 0.5 %
[2020-09-07 04:19] LABS: Basophils # (auto) 0.1 10 ^3/uL (0-0.2); Basophils % (auto) 0.6 % (0.0-2.0); Eosinophils % (auto) 4.1 % (0.0-7.0); Hematocrit 27.8 % (36.0-46.0); Lymphocytes % (auto) 8.9 % (10.0-50.0); Mean Corpuscular Hemoglobin 27.8 pg (28.0-32.0); Mean Corpuscular Hgb Conc. 30.8 g/dL (32.0-36.0); Mean Corpuscular Volume 90.3 fL (80.0-100.0); Monocytes # (auto) 0.7 10 ^3/uL (0-1.3); Monocytes % (auto) 6.9 % (0.0-12.0); Neutrophils # (auto) 7.7 10 ^3/uL (1.6-8.6); Neutrophils % (auto) 79.5 % (37.0-80.0); Platelet Count (auto) 131 10^3/uL (140-450); Red Blood Cells 3.08 10^6/uL (4.0-5.20); Red Cell Distribution Width 18.2 % (11.8-14.3); White Blood Cell 9.7 10^3/uL (4.4-10.8)
[2020-09-07] MEDS: PROPOFOL 100 ML IV SCH (04:27)
[2020-09-07] MEDS: ROCURONIUM BROMIDE 1,000 MG in D5W 5% 150 ML IV SCH (04:48)
[2020-09-07 06:10] LABS: Albumin 1.2 g/dL (3.4-5.0); Calcium 7.3 mg/dL (8.5-10.1); Magnesium 2.1 mg/dL (1.6-2.6); Potassium 3.8 mmol/L (3.5-5.1)
[2020-09-07 06:13] LABS: Bilirubin, Total 0.3 mg/dL (0.2-1.0); Phosphorus 1.5 mg/dL (2.5-4.90); Total Protein 5.6 g/dL (6.4-8.2)
[2020-09-07] MEDS: INSULIN LANTUS (GLARGINE) 1 /0.01ml (100units/ml) SC SCH ×2 (08:00→22:22)
[2020-09-07] MEDS: SODIUM CHLOR 0.9% PF (SALINE LOCK) 10ML VIAL/SYR IV SCH ×2 (09:41→22:21)
[2020-09-07] MEDS: FAMOTIDINE (10MG/ML) 2ML VL IV SCH ×2 (09:41→22:28)
[2020-09-07] MEDS: LEVOTHYROXINE SODIUM 100 MCG/5 ML INJ IV SCH (09:41)
[2020-09-07] MEDS: FUROSEMIDE 40 MG/4 ML VIAL IV SCH (09:41)
[2020-09-07] MEDS: BUDESONIDE (INHALATION) 0.5 MG/2 ML NEB NEB SCH ×2 (10:00→18:40)
[2020-09-07] MEDS: CITALOPRAM HYDROBR 20 MG TAB PO SCH (10:00)
[2020-09-07] MEDS: buPROPion HCL 75 MG TAB PO SCH ×2 (10:00→22:21)
[2020-09-07] MEDS: LOSARTAN POTASSIUM 50 MG TAB PO SCH (10:00)
[2020-09-07] MEDS: ASPirin-EC 81 mg tab PO SCH (10:00)
[2020-09-07] MEDS: amLODIPine BESYLATE 5 MG TAB PO SCH (10:00)
[2020-09-07] MEDS ORDERED: POTASSIUM PHOSPHATE 22 MEQ in SODIUM CHL 0.9% 100 ML IV ONE (13:00)
[2020-09-07] MEDS: NOREPINEPHRINE 8 MG/250ML KIT 250 ML IV SCH (13:45)
[2020-09-07] MEDS: fentaNYL Drip 2500mCg/250mlNS 250 ML IV SCH (13:45)
[2020-09-07] MEDS ORDERED: TPN PER PHARMACY IV NR ×10 (20:00)
[2020-09-07] MEDS: ALBUTEROL SULF 2.5 MG/0.5ML(0.5%) NEB SOLN NEB PRN (20:33)
[2020-09-07] MEDS: ACETAMINOPHEN 325 MG TAB PO PRN (22:29)
[2020-09-08] VITALS (99 sets, daily range): BP systolic 105–173; BP diastolic 50–80
[2020-09-08] MEDS: ROCURONIUM BROMIDE 1,000 MG in D5W 5% 150 ML IV SCH (02:27)
[2020-09-08] MEDS: ACETAMINOPHEN 325 MG TAB PO PRN ×2 (05:12→11:30)
[2020-09-08] MEDS: InsuLIN REG 1unit/0.01ml Soln (100units/ml) SC SCH ×5 (05:21→23:24)
[2020-09-08 05:27] LABS: White Blood Cell 12.8 10^3/uL (4.4-10.8)
[2020-09-08 05:32] LABS: Hematocrit 30.2 % (36.0-46.0); Hemoglobin 9.4 g/dL (12.2-16.2); Mean Corpuscular Hgb Conc. 31.1 g/dL (32.0-36.0); Mean Corpuscular Volume 83.8 fL (80.0-100.0); Platelet Count (auto) 170 10^3/uL (140-450); Red Blood Cells 3.61 10^6/uL (4.0-5.20); Red Cell Distribution Width 17.2 % (11.8-14.3)
[2020-09-08 05:50] LABS: Albumin 1.4 g/dL (3.4-5.0); BUN/Creatinine Ratio 62.5; Basophils % (manual) 0 (0.0-2.0); Bilirubin, Total 0.3 mg/dL (0.2-1.0); Blast Cells 0; Calcium 8.3 mg/dL (8.5-10.1); Magnesium 2.3 mg/dL (1.6-2.6); Phosphorus 5.6 mg/dL (2.5-4.90); Promyelocytes % 0; Reactive Lymphocytes 0; Total Protein 6.5 g/dL (6.4-8.2)
[2020-09-08] MEDS: ACCU-CHEK COMFORT CURVE STRIP VI SCH ×5 (06:00→23:41)
[2020-09-08 06:25] LABS: Band Neutrophils % (manual) 2; Eosinophils % (manual) 8 (0-7); Lymphocytes % (manual) 13 (10.0-50.0); Metamyelocytes % 1; Monocytes % (manual) 7 (0-12); Myelocytes % 2
[2020-09-08] MEDS: BUDESONIDE (INHALATION) 0.5 MG/2 ML NEB NEB SCH ×2 (06:50→21:46)
[2020-09-08] MEDS: INSULIN LANTUS (GLARGINE) 1 /0.01ml (100units/ml) SC SCH ×2 (07:00→22:00)
[2020-09-08] MEDS: ALBUTEROL SULF 2.5 MG/0.5ML(0.5%) NEB SOLN NEB PRN ×2 (08:19→21:46)
[2020-09-08] MEDS: SODIUM CHLOR 0.9% PF (SALINE LOCK) 10ML VIAL/SYR IV SCH ×2 (09:14→22:00)
[2020-09-08] MEDS: FAMOTIDINE (10MG/ML) 2ML VL IV SCH ×2 (09:14→22:00)
[2020-09-08] MEDS: FUROSEMIDE 40 MG/4 ML VIAL IV SCH (09:14)
[2020-09-08] MEDS: LEVOTHYROXINE SODIUM 100 MCG/5 ML INJ IV SCH (09:15)
[2020-09-08] MEDS: amLODIPine BESYLATE 5 MG TAB PO SCH (09:15)
[2020-09-08] MEDS: ASPirin-EC 81 mg tab PO SCH (09:15)
[2020-09-08] MEDS: CITALOPRAM HYDROBR 20 MG TAB PO SCH (09:15)
[2020-09-08] MEDS: buPROPion HCL 75 MG TAB PO SCH ×2 (09:15→22:00)
[2020-09-08] MEDS: LOSARTAN POTASSIUM 50 MG TAB PO SCH (09:15)
[2020-09-08] MEDS: NOREPINEPHRINE 8 MG/250ML KIT 250 ML IV SCH (11:54)
[2020-09-08] MEDS: MIDAZOLAM DRIP 50 mg/50mL 50 ML IV SCH (11:54)
[2020-09-08] MEDS: PROPOFOL 100 ML IV SCH (11:54)
[2020-09-08] MEDS: fentaNYL Drip 2500mCg/250mlNS 250 ML IV SCH (11:56)
[2020-09-08] MEDS ORDERED: TPN PER PHARMACY IV NR ×8 (20:00)
[2020-09-09] VITALS (72 sets, daily range): BP systolic 98–151; BP diastolic 54–85
[2020-09-09] MEDS: ROCURONIUM BROMIDE 1,000 MG in D5W 5% 150 ML IV SCH ×2 (00:06→21:45)
[2020-09-09 06:02] LABS: Potassium 3.7 mmol/L (3.5-5.1)
[2020-09-09 06:05] LABS: Hematocrit 33.1 % (36.0-46.0); Hemoglobin 10.4 g/dL (12.2-16.2); Mean Corpuscular Hemoglobin 26.5 pg (28.0-32.0); Mean Corpuscular Hgb Conc. 31.4 g/dL (32.0-36.0); Mean Corpuscular Volume 84.1 fL (80.0-100.0); Platelet Count (auto) 187 10^3/uL (140-450); Red Blood Cells 3.94 10^6/uL (4.0-5.20); Red Cell Distribution Width 17.6 % (11.8-14.3); White Blood Cell 11.5 10^3/uL (4.4-10.8)
[2020-09-09 06:18] LABS: Basophils % (manual) 0 (0.0-2.0); Blast Cells 0; Promyelocytes % 0; Reactive Lymphocytes 0
[2020-09-09 06:20] LABS: Albumin 1.3 g/dL (3.4-5.0); BUN/Creatinine Ratio 67.3; Bilirubin, Total 0.3 mg/dL (0.2-1.0); Calcium 8.4 mg/dL (8.5-10.1); Magnesium 2.4 mg/dL (1.6-2.6); Phosphorus 2.6 mg/dL (2.5-4.90); Total Protein 6.8 g/dL (6.4-8.2)
[2020-09-09] MEDS: INSULIN LANTUS (GLARGINE) 1 /0.01ml (100units/ml) SC SCH ×2 (07:00→23:27)
[2020-09-09 08:05] LABS: Band Neutrophils % (manual) 11; Eosinophils % (manual) 5 (0-7); Lymphocytes % (manual) 5 (10.0-50.0); Metamyelocytes % 3; Monocytes % (manual) 4 (0-12); Myelocytes % 3
[2020-09-09] MEDS: FAMOTIDINE (10MG/ML) 2ML VL IV SCH ×2 (10:00→23:26)
[2020-09-09] MEDS: FUROSEMIDE 40 MG/4 ML VIAL IV SCH (10:00)
[2020-09-09] MEDS: buPROPion HCL 75 MG TAB PO SCH ×2 (10:00→23:26)
[2020-09-09] MEDS: SODIUM CHLOR 0.9% PF (SALINE LOCK) 10ML VIAL/SYR IV SCH ×2 (10:00→23:26)
[2020-09-09] MEDS: LEVOTHYROXINE SODIUM 100 MCG/5 ML INJ IV SCH (10:00)
[2020-09-09] MEDS: BUDESONIDE (INHALATION) 0.5 MG/2 ML NEB NEB SCH ×2 (10:00→21:03)
[2020-09-09] MEDS: ASPirin-EC 81 mg tab PO SCH (10:00)
[2020-09-09] MEDS: CITALOPRAM HYDROBR 20 MG TAB PO SCH (10:00)
[2020-09-09] MEDS: ACCU-CHEK COMFORT CURVE STRIP VI SCH ×2 (12:00→18:27)
[2020-09-09] MEDS: InsuLIN REG 1unit/0.01ml Soln (100units/ml) SC SCH ×2 (12:00→18:27)
[2020-09-09] MEDS: fentaNYL Drip 2500mCg/250mlNS 250 ML IV SCH ×2 (13:45→20:17)
[2020-09-09] MEDS: NOREPINEPHRINE 8 MG/250ML KIT 250 ML IV SCH (13:45)
[2020-09-09] MEDS: PROPOFOL 100 ML IV SCH ×2 (13:45→21:41)
[2020-09-09] MEDS: MIDAZOLAM DRIP 50 mg/50mL 50 ML IV SCH ×2 (13:45→20:23)
[2020-09-09] MEDS ORDERED: TPN PER PHARMACY IV NR ×9 (20:00)
[2020-09-09] MEDS: ALBUTEROL SULF 2.5 MG/0.5ML(0.5%) NEB SOLN NEB PRN (21:04)
[2020-09-10] VITALS (90 sets, daily range): BP systolic 97–142; BP diastolic 52–69
[2020-09-10] MEDS: MIDAZOLAM DRIP 50 mg/50mL 50 ML IV SCH ×3 (01:59→23:15)
[2020-09-10] MEDS: InsuLIN REG 1unit/0.01ml Soln (100units/ml) SC SCH ×4 (02:01→18:00)
[2020-09-10] MEDS: ACCU-CHEK COMFORT CURVE STRIP VI SCH ×4 (02:02→18:00)
[2020-09-10 04:59] LABS: Hemoglobin 9.2 g/dL (12.2-16.2)
[2020-09-10 05:02] LABS: Hematocrit 28.4 % (36.0-46.0); Mean Corpuscular Hemoglobin 26.8 pg (28.0-32.0); Mean Corpuscular Hgb Conc. 32.3 g/dL (32.0-36.0); Mean Corpuscular Volume 83.2 fL (80.0-100.0); Platelet Count (auto) 184 10^3/uL (140-450); Red Blood Cells 3.42 10^6/uL (4.0-5.20); Red Cell Distribution Width 17.4 % (11.8-14.3)
[2020-09-10 05:13] LABS: Basophils % (manual) 0 (0.0-2.0); Blast Cells 0; Promyelocytes % 0; Reactive Lymphocytes 0
[2020-09-10 05:19] LABS: Albumin 1.3 g/dL (3.4-5.0); Calcium 8.1 mg/dL (8.5-10.1); Magnesium 2.2 mg/dL (1.6-2.6)
[2020-09-10 05:22] LABS: BUN/Creatinine Ratio 70.5; Bilirubin, Total 0.3 mg/dL (0.2-1.0); Phosphorus 2.1 mg/dL (2.5-4.90); Total Protein 6.5 g/dL (6.4-8.2)
[2020-09-10 05:26] LABS: Band Neutrophils % (manual) 23; Eosinophils % (manual) 6 (0-7); Lymphocytes % (manual) 16 (10.0-50.0); Metamyelocytes % 1; Monocytes % (manual) 3 (0-12); Myelocytes % 1
[2020-09-10 05:30] LABS: Potassium 2.7 mmol/L (3.5-5.1)
[2020-09-10] MEDS: PROPOFOL 100 ML IV SCH (05:42)
[2020-09-10] MEDS: POTASSIUM CHL 20MEQ/100ML 100 ML IV SCH ×2 (07:00→10:35)
[2020-09-10] MEDS: INSULIN LANTUS (GLARGINE) 1 /0.01ml (100units/ml) SC SCH ×2 (08:04→22:00)
[2020-09-10] MEDS: fentaNYL Drip 2500mCg/250mlNS 250 ML IV SCH (08:11)
[2020-09-10] MEDS: BUDESONIDE (INHALATION) 0.5 MG/2 ML NEB NEB SCH ×2 (10:00→18:35)
[2020-09-10] MEDS: CITALOPRAM HYDROBR 20 MG TAB PO SCH (10:00)
[2020-09-10] MEDS: FUROSEMIDE 40 MG/4 ML VIAL IV SCH (10:17)
[2020-09-10] MEDS: FAMOTIDINE (10MG/ML) 2ML VL IV SCH ×2 (10:17→22:33)
[2020-09-10] MEDS: SODIUM CHLOR 0.9% PF (SALINE LOCK) 10ML VIAL/SYR IV SCH ×2 (10:17→22:33)
[2020-09-10] MEDS: ASPirin-EC 81 mg tab PO SCH (10:18)
[2020-09-10] MEDS: buPROPion HCL 75 MG TAB PO SCH ×2 (10:18→22:33)
[2020-09-10] MEDS: LEVOTHYROXINE SODIUM 100 MCG/5 ML INJ IV SCH (10:18)
[2020-09-10] MEDS: ALBUTEROL SULF 2.5 MG/0.5ML(0.5%) NEB SOLN NEB PRN ×2 (10:23→18:35)
[2020-09-10] MEDS ORDERED: POTASSIUM PHOSP 22MEQ(15MMOLE) in NS 100 ML IV ONE (13:00)
[2020-09-10] MEDS: NOREPINEPHRINE 8 MG/250ML KIT 250 ML IV SCH (13:45)
[2020-09-10] MEDS: ROCURONIUM BROMIDE 1,000 MG in D5W 5% 150 ML IV SCH (19:24)
[2020-09-10] MEDS: TPN PER PHARMACY IV NR ×10 (20:00)
[2020-09-11] VITALS (77 sets, daily range): BP systolic 80–125; BP diastolic 40–62
[2020-09-11] MEDS: MIDAZOLAM DRIP 50 mg/50mL 50 ML IV SCH ×3 (03:13→20:59)
[2020-09-11] MEDS: ACCU-CHEK COMFORT CURVE STRIP VI SCH ×4 (06:00→18:25)
[2020-09-11] MEDS: BUDESONIDE (INHALATION) 0.5 MG/2 ML NEB NEB SCH ×2 (06:45→19:50)
[2020-09-11] MEDS: INSULIN LANTUS (GLARGINE) 1 /0.01ml (100units/ml) SC SCH ×2 (07:00→20:52)
[2020-09-11] MEDS: InsuLIN REG 1unit/0.01ml Soln (100units/ml) SC SCH ×4 (07:00→18:26)
[2020-09-11] MEDS: ALBUTEROL SULF 2.5 MG/0.5ML(0.5%) NEB SOLN NEB PRN ×2 (08:08→19:50)
[2020-09-11 09:05] LABS: Mean Corpuscular Hemoglobin 26.2 pg (28.0-32.0)
[2020-09-11 09:07] LABS: Hematocrit 28.9 % (36.0-46.0); Mean Corpuscular Hgb Conc. 31.1 g/dL (32.0-36.0); Mean Corpuscular Volume 84.4 fL (80.0-100.0); Platelet Count (auto) 250 10^3/uL (140-450); Red Blood Cells 3.42 10^6/uL (4.0-5.20); Red Cell Distribution Width 17.5 % (11.8-14.3)
[2020-09-11 09:13] LABS: Basophils % (manual) 0 (0.0-2.0); Blast Cells 0; Promyelocytes % 0; Reactive Lymphocytes 0
[2020-09-11 09:17] LABS: Albumin 1.3 g/dL (3.4-5.0); Calcium 8.1 mg/dL (8.5-10.1); Magnesium 2.4 mg/dL (1.6-2.6); Potassium 3.8 mmol/L (3.5-5.1)
[2020-09-11 09:20] LABS: BUN/Creatinine Ratio 52.9; Bilirubin, Total 0.3 mg/dL (0.2-1.0); Phosphorus 6.2 mg/dL (2.5-4.90); Pre Albumin 9.6 mg/dL (20.0-40.0); Total Protein 6.9 g/dL (6.4-8.2)
[2020-09-11] MEDS: LEVOTHYROXINE SODIUM 100 MCG/5 ML INJ IV SCH (09:47)
[2020-09-11] MEDS: FAMOTIDINE (10MG/ML) 2ML VL IV SCH ×2 (09:47→20:51)
[2020-09-11] MEDS: SODIUM CHLOR 0.9% PF (SALINE LOCK) 10ML VIAL/SYR IV SCH ×2 (09:47→20:51)
[2020-09-11] MEDS: FUROSEMIDE 40 MG/4 ML VIAL IV SCH (09:47)
[2020-09-11] MEDS: ASPirin-EC 81 mg tab PO SCH (09:52)
[2020-09-11] MEDS: CITALOPRAM HYDROBR 20 MG TAB PO SCH (09:52)
[2020-09-11] MEDS: buPROPion HCL 75 MG TAB PO SCH ×2 (09:53→20:51)
[2020-09-11] MEDS ORDERED: PHENYLEPHRINE IV 250 ML IV ONE (10:10)
[2020-09-11] MEDS: PROPOFOL 100 ML IV SCH (12:15)
[2020-09-11] MEDS: NOREPINEPHRINE 8 MG/250ML KIT 250 ML IV SCH (12:16)
[2020-09-11 13:16] LABS: Band Neutrophils % (manual) 23; Eosinophils % (manual) 2 (0-7); Lymphocytes % (manual) 6 (10.0-50.0); Metamyelocytes % 8; Monocytes % (manual) 3 (0-12); Myelocytes % 2
[2020-09-11] MEDS: fentaNYL Drip 2500mCg/250mlNS 250 ML IV SCH (13:45)
[2020-09-11] MEDS: ROCURONIUM BROMIDE 1,000 MG in D5W 5% 150 ML IV SCH (15:22)
[2020-09-11] MEDS: ACETAMINOPHEN 325 MG TAB PO PRN (18:29)
[2020-09-11] MEDS: TPN PER PHARMACY IV NR ×10 (20:00)
[2020-09-11] MEDS ORDERED: TPN PER PHARMACY IV NR ×9 (20:00)
[2020-09-12] VITALS (102 sets, daily range): BP systolic 81–134; BP diastolic 40–66
[2020-09-12] MEDS: MIDAZOLAM DRIP 50 mg/50mL 50 ML IV SCH ×6 (01:10→22:00)
[2020-09-12] MEDS: PROPOFOL 100 ML IV SCH ×4 (05:02→22:00)
[2020-09-12] MEDS: ROCURONIUM BROMIDE 1,000 MG in D5W 5% 150 ML IV SCH (05:05)
[2020-09-12] MEDS: fentaNYL Drip 2500mCg/250mlNS 250 ML IV SCH ×2 (05:11→16:31)
[2020-09-12] MEDS: ACCU-CHEK COMFORT CURVE STRIP VI SCH ×4 (06:00→17:38)
[2020-09-12] MEDS: BUDESONIDE (INHALATION) 0.5 MG/2 ML NEB NEB SCH ×2 (06:35→23:13)
[2020-09-12] MEDS: INSULIN LANTUS (GLARGINE) 1 /0.01ml (100units/ml) SC SCH ×2 (07:00→22:00)
[2020-09-12 07:37] LABS: Mean Corpuscular Hemoglobin 26.8 pg (28.0-32.0); Mean Corpuscular Hgb Conc. 29.8 g/dL (32.0-36.0); Mean Corpuscular Volume 89.9 fL (80.0-100.0); Platelet Count (auto) 259 10^3/uL (140-450); Red Cell Distribution Width 18.6 % (11.8-14.3); White Blood Cell 17.9 10^3/uL (4.4-10.8)
[2020-09-12] MEDS: InsuLIN REG 1unit/0.01ml Soln (100units/ml) SC SCH ×4 (07:39→17:41)
[2020-09-12 07:40] LABS: Basophils % (manual) 0 (0.0-2.0); Blast Cells 0; Promyelocytes % 0; Reactive Lymphocytes 0
[2020-09-12 09:01] LABS: Potassium 3.5 mmol/L (3.5-5.1)
[2020-09-12] MEDS: NOREPINEPHRINE 8 MG/250ML KIT 250 ML IV SCH ×2 (09:01→23:00)
[2020-09-12 09:09] LABS: Albumin 1.3 g/dL (3.4-5.0); BUN/Creatinine Ratio 49.2; Bilirubin, Total 0.3 mg/dL (0.2-1.0); Calcium 8.4 mg/dL (8.5-10.1); Magnesium 2.3 mg/dL (1.6-2.6); Phosphorus 4.4 mg/dL (2.5-4.90); Total Protein 6.9 g/dL (6.4-8.2)
[2020-09-12] MEDS: ALBUTEROL SULF 2.5 MG/0.5ML(0.5%) NEB SOLN NEB PRN (09:12)
[2020-09-12 09:13] LABS: Band Neutrophils % (manual) 24; Eosinophils % (manual) 4 (0-7); Lymphocytes % (manual) 10 (10.0-50.0); Metamyelocytes % 6; Monocytes % (manual) 5 (0-12); Myelocytes % 2
[2020-09-12] MEDS: LEVOTHYROXINE SODIUM 100 MCG/5 ML INJ IV SCH (10:21)
[2020-09-12] MEDS: ASPirin-EC 81 mg tab PO SCH (10:22)
[2020-09-12] MEDS: FUROSEMIDE 40 MG/4 ML VIAL IV SCH (10:22)
[2020-09-12] MEDS: FAMOTIDINE (10MG/ML) 2ML VL IV SCH ×2 (10:22→22:00)
[2020-09-12] MEDS: buPROPion HCL 75 MG TAB PO SCH ×2 (10:22→22:00)
[2020-09-12] MEDS: CITALOPRAM HYDROBR 20 MG TAB PO SCH (10:23)
[2020-09-12] MEDS: SODIUM CHLOR 0.9% PF (SALINE LOCK) 10ML VIAL/SYR IV SCH ×2 (10:24→22:00)
[2020-09-12] MEDS ORDERED: POTASSIUM CHL 20MEQ/100ML 100 ML IV ONE (11:00)
[2020-09-12] MEDS: SODIUM CHLORIDE 0.9% 1,000 ML IV SCH (16:22)
[2020-09-12] MEDS: ROCURONIUM 10MG/ML 10ML VIAL IV PRN (19:35)
[2020-09-12] MEDS ORDERED: TPN PER PHARMACY IV NR ×10 (20:00)
[2020-09-13] VITALS (98 sets, daily range): BP systolic 75–137; BP diastolic 35–65
[2020-09-13] MEDS: MIDAZOLAM DRIP 50 mg/50mL 50 ML IV SCH ×5 (01:25→20:30)
[2020-09-13] MEDS: SODIUM CHLORIDE 0.9% 1,000 ML IV SCH (02:40)
[2020-09-13 03:41] LABS: Albumin 1.2 g/dL (3.4-5.0); Calcium 8.2 mg/dL (8.5-10.1); Magnesium 2.1 mg/dL (1.6-2.6); Potassium 3.5 mmol/L (3.5-5.1); White Blood Cell 19.9 10^3/uL (4.4-10.8)
[2020-09-13 03:43] LABS: Hemoglobin 8.8 g/dL (12.2-16.2); Mean Corpuscular Hemoglobin 26.4 pg (28.0-32.0); Mean Corpuscular Hgb Conc. 31.3 g/dL (32.0-36.0); Mean Corpuscular Volume 84.3 fL (80.0-100.0); Platelet Count (auto) 294 10^3/uL (140-450); Red Blood Cells 3.32 10^6/uL (4.0-5.20); Red Cell Distribution Width 17.7 % (11.8-14.3)
[2020-09-13 03:44] LABS: BUN/Creatinine Ratio 57.6; Bilirubin, Total 0.3 mg/dL (0.2-1.0); Phosphorus 2.4 mg/dL (2.5-4.90); Total Protein 6.7 g/dL (6.4-8.2)
[2020-09-13 03:52] LABS: Basophils % (manual) 0 (0.0-2.0); Blast Cells 0; Promyelocytes % 0; Reactive Lymphocytes 0
[2020-09-13] MEDS: PROPOFOL 100 ML IV SCH ×4 (04:00→23:15)
[2020-09-13 04:34] LABS: Eosinophils % (manual) 2 (0-7); Monocytes % (manual) 3 (0-12); Myelocytes % 1
[2020-09-13 04:35] LABS: Band Neutrophils % (manual) 19; Lymphocytes % (manual) 18 (10.0-50.0); Metamyelocytes % 3
[2020-09-13] MEDS: ACCU-CHEK COMFORT CURVE STRIP VI SCH ×4 (05:18→17:52)
[2020-09-13] MEDS: InsuLIN REG 1unit/0.01ml Soln (100units/ml) SC SCH ×4 (05:31→17:54)
[2020-09-13] MEDS: INSULIN LANTUS (GLARGINE) 1 /0.01ml (100units/ml) SC SCH ×2 (05:34→20:52)
[2020-09-13] MEDS: BUDESONIDE (INHALATION) 0.5 MG/2 ML NEB NEB SCH ×2 (09:37→22:00)
[2020-09-13] MEDS: ALBUTEROL SULF 2.5 MG/0.5ML(0.5%) NEB SOLN NEB PRN (09:37)
[2020-09-13] MEDS: LEVOTHYROXINE SODIUM 100 MCG/5 ML INJ IV SCH (09:55)
[2020-09-13] MEDS: CITALOPRAM HYDROBR 20 MG TAB PO SCH (09:55)
[2020-09-13] MEDS: buPROPion HCL 75 MG TAB PO SCH ×2 (09:56→20:51)
[2020-09-13] MEDS: FAMOTIDINE (10MG/ML) 2ML VL IV SCH ×2 (09:57→20:50)
[2020-09-13] MEDS: ASPirin-EC 81 mg tab PO SCH (09:59)
[2020-09-13] MEDS: SODIUM CHLOR 0.9% PF (SALINE LOCK) 10ML VIAL/SYR IV SCH ×2 (10:00→20:50)
[2020-09-13] MEDS ORDERED: POTASSIUM PHOSP 22MEQ(15MMOLE) in NS 100 ML IV ONE (11:15)
[2020-09-13] MEDS: ROCURONIUM BROMIDE 1,000 MG in D5W 5% 150 ML IV SCH ×2 (12:21→19:30)
[2020-09-13] MEDS: ACETAMINOPHEN 325 MG TAB PO PRN ×2 (14:15→20:52)
[2020-09-13] MEDS: fentaNYL Drip 2500mCg/250mlNS 250 ML IV SCH (16:16)
[2020-09-13] MEDS: NOREPINEPHRINE 8 MG/250ML KIT 250 ML IV SCH ×2 (16:17→23:15)
[2020-09-13] MEDS ORDERED: TPN PER PHARMACY IV NR ×10 (20:00)
[2020-09-14] VITALS (97 sets, daily range): BP systolic 85–168; BP diastolic 17–90
[2020-09-14] MEDS: LACTULOSE 20Gm/30ML SOLN PO SCH
[2020-09-14] MEDS: MIDAZOLAM DRIP 50 mg/50mL 50 ML IV SCH ×3 (00:05→20:46)
[2020-09-14] MEDS: InsuLIN REG 1unit/0.01ml Soln (100units/ml) SC SCH ×4 (00:12→18:26)
[2020-09-14] MEDS: ACCU-CHEK COMFORT CURVE STRIP VI SCH ×4 (00:12→18:25)
[2020-09-14] MEDS: fentaNYL Drip 2500mCg/250mlNS 250 ML IV SCH (03:25)
[2020-09-14 04:03] LABS: Magnesium 2.1 mg/dL (1.6-2.6)
[2020-09-14 04:14] LABS: Albumin 1.3 g/dL (3.4-5.0); BUN/Creatinine Ratio 44.3; Bilirubin, Direct 0.3 mg/dL (0-0.2); Bilirubin, Total 0.4 mg/dL (0.2-1.0); CRP High Sensitivity 17.2 mg/dL (< 0.3); Total Protein 7.4 g/dL (6.4-8.2)
[2020-09-14 04:30] LABS: Hemoglobin 8.5 g/dL (12.2-16.2)
[2020-09-14 04:31] LABS: Hematocrit 27.1 % (36.0-46.0); Mean Corpuscular Hgb Conc. 31.5 g/dL (32.0-36.0); Mean Corpuscular Volume 85.9 fL (80.0-100.0); Platelet Count (auto) 381 10^3/uL (140-450); Red Blood Cells 3.15 10^6/uL (4.0-5.20); Red Cell Distribution Width 18.6 % (11.8-14.3); White Blood Cell 28.2 10^3/uL (4.4-10.8)
[2020-09-14 04:38] LABS: Basophils % (manual) 0 (0.0-2.0); Blast Cells 0; Eosinophils % (manual) 0 (0-7); Potassium 5.8 mmol/L (3.5-5.1); Promyelocytes % 0; Reactive Lymphocytes 0
[2020-09-14] MEDS: NOREPINEPHRINE 8 MG/250ML KIT 250 ML IV SCH ×3 (04:41→22:40)
[2020-09-14 05:07] LABS: Metamyelocytes % 3; Monocytes % (manual) 4 (0-12); Myelocytes % 1
[2020-09-14 05:08] LABS: Band Neutrophils % (manual) 22; Lymphocytes % (manual) 21 (10.0-50.0)
[2020-09-14 05:13] LABS: INR 1.05 (0.9-1.15); Partial Thromboplastin Time 27.7 sec (23.0-31.2)
[2020-09-14] MEDS: PROPOFOL 100 ML IV SCH (06:15)
[2020-09-14] MEDS: INSULIN LANTUS (GLARGINE) 1 /0.01ml (100units/ml) SC SCH ×2 (06:37→22:00)
[2020-09-14] MEDS: BUDESONIDE (INHALATION) 0.5 MG/2 ML NEB NEB SCH ×2 (07:00→22:00)
[2020-09-14] MEDS: ALBUTEROL SULF 2.5 MG/0.5ML(0.5%) NEB SOLN NEB PRN ×3 (07:00→23:17)
[2020-09-14] MEDS: CITALOPRAM HYDROBR 20 MG TAB PO SCH (09:13)
[2020-09-14] MEDS: LEVOTHYROXINE SODIUM 100 MCG/5 ML INJ IV SCH (09:13)
[2020-09-14] MEDS: FAMOTIDINE (10MG/ML) 2ML VL IV SCH ×2 (09:13→22:00)
[2020-09-14] MEDS: SODIUM CHLOR 0.9% PF (SALINE LOCK) 10ML VIAL/SYR IV SCH ×2 (09:13→22:00)
[2020-09-14] MEDS: buPROPion HCL 75 MG TAB PO SCH ×2 (09:14→22:00)
[2020-09-14] MEDS: ASPirin-EC 81 mg tab PO SCH (09:14)
[2020-09-14] MEDS: PHENYLEPHRINE IV 250 ML IV SCH ×2 (12:00→20:46)
[2020-09-14] MEDS ORDERED: PHENYLEPHRINE IV 250 ML IV ONE (12:04)
[2020-09-14] MEDS: EPINEPHrine HCL 250 ML IV SCH (13:00)
[2020-09-14] MEDS: VASOPRESSIN 50 UNITS in D5W 5% 247.5 ML IV SCH (13:00)
[2020-09-14] MEDS ORDERED: FUROSEMIDE 40 MG/4 ML VIAL IV SCH (13:15)
[2020-09-14] MEDS ORDERED: DEXTROSE (50%) 50ML SYRG IV ONE ×2 (15:30→23:30)
[2020-09-14] MEDS ORDERED: InsuLIN REG 1unit/0.01ml Soln (100units/ml) IV ONE ×2 (15:30→23:30)
[2020-09-14] MEDS ORDERED: SODIUM ZIRCONIUM CYCL 10 GM PAK GT ONE (15:30)
[2020-09-14] MEDS ORDERED: CALCIUM GLUC 4.65meq/50ml D5AE 50 ML IV ONE ×2 (15:30→23:30)
[2020-09-14] MEDS ORDERED: BUMETANIDE 2.5mg/10ml (0.25 mg/ml) INJ IV ONE ×2 (16:00→23:30)
[2020-09-14] MEDS: SODIUM ZIRCONIUM CYCL 10 GM PAK PO SCH ×2 (16:00→22:00)
[2020-09-14] MEDS ORDERED: VANCOMYCIN PER PHARMACY 0 MG IV SCH (16:45)
[2020-09-14] MEDS ORDERED: ENOXAPARIN SOD 40 MG/0.4 ML SYRINGE SC ONE (17:45)
[2020-09-14] MEDS: SODIUM BICARBONATE 50ML VIAL 150 ML in D5W 5% 1,000 ML IV SCH ×3 (18:24)
[2020-09-14] MEDS: ROCURONIUM BROMIDE 1,000 MG in D5W 5% 150 ML IV SCH (18:33)
[2020-09-14] MEDS ORDERED: SODIUM CHLORIDE IV NR ×9 (20:00)
[2020-09-14] MEDS ORDERED: MEROPENEM 1GM IVPB 100 ML IV ONE (20:00)
[2020-09-14] MEDS ORDERED: [UNRECOGNIZED DRUG - OTHER] IV NR ×9 (20:00)
[2020-09-14] MEDS ORDERED: MAGNESIUM SULF IV NR ×9 (20:00)
[2020-09-14] MEDS ORDERED: SODIUM ACETATE IV NR ×9 (20:00)
[2020-09-14 22:26] LABS: Hematocrit 30.6 % (36.0-46.0); Hemoglobin 8.8 g/dL (12.2-16.2); Mean Corpuscular Hemoglobin 26.2 pg (28.0-32.0); Mean Corpuscular Hgb Conc. 28.8 g/dL (32.0-36.0); Mean Corpuscular Volume 90.7 fL (80.0-100.0); Platelet Count (auto) 437 10^3/uL (140-450); Red Blood Cells 3.37 10^6/uL (4.0-5.20); Red Cell Distribution Width 19.5 % (11.8-14.3)
[2020-09-14 22:36] LABS: Albumin 1.3 g/dL (3.4-5.0); Calcium 7.9 mg/dL (8.5-10.1)
[2020-09-14 22:53] LABS: BUN/Creatinine Ratio 34.6; Bilirubin, Total 0.9 mg/dL (0.2-1.0); Total Protein 7.5 g/dL (6.4-8.2); White Blood Cell 45.2 10^3/uL (4.4-10.8)
[2020-09-14 22:54] LABS: Basophils % (manual) 0 (0.0-2.0); Blast Cells 0; Eosinophils % (manual) 0 (0-7); Promyelocytes % 0; Reactive Lymphocytes 0
[2020-09-14] MEDS ORDERED: VANCOMYCIN 1GM/250ML 250 ML IV ONE (23:00)
[2020-09-14 23:07] LABS: Potassium 7.8 mmol/L (3.5-5.1)
[2020-09-15] VITALS (29 sets, daily range): BP systolic 70–170; BP diastolic 21–83
[2020-09-15] MEDS ORDERED: BUMETANIDE INJECTION 10 ML ONE (00:43)
[2020-09-15 01:26] LABS: Band Neutrophils % (manual) 39; Lymphocytes % (manual) 1 (10.0-50.0); Metamyelocytes % 11; Monocytes % (manual) 3 (0-12); Myelocytes % 23
[2020-09-15] MEDS: InsuLIN REG 1unit/0.01ml Soln (100units/ml) SC SCH ×2 (01:35→06:28)
[2020-09-15] MEDS: ACCU-CHEK COMFORT CURVE STRIP VI SCH ×2 (01:36→05:57)
[2020-09-15] MEDS: EPINEPHrine HCL 250 ML IV SCH (02:20)
[2020-09-15] MEDS ORDERED: VASOPRESSIN 20 UNIT/ML ONE (02:24)
[2020-09-15] MEDS: VASOPRESSIN 50 UNITS in D5W 5% 247.5 ML IV SCH (03:30)
[2020-09-15 04:00] LABS: Hematocrit 29.6 % (36.0-46.0); Hemoglobin 8.2 g/dL (12.2-16.2); Mean Corpuscular Hemoglobin 26.5 pg (28.0-32.0); Mean Corpuscular Hgb Conc. 27.8 g/dL (32.0-36.0); Mean Corpuscular Volume 95.3 fL (80.0-100.0); Platelet Count (auto) 383 10^3/uL (140-450); Red Blood Cells 3.11 10^6/uL (4.0-5.20); Red Cell Distribution Width 19.6 % (11.8-14.3)
[2020-09-15] MEDS: LACTULOSE 20Gm/30ML SOLN PO SCH ×2 (04:06→05:56)
[2020-09-15 04:26] LABS: Albumin 1.2 g/dL (3.4-5.0); Calcium 7.7 mg/dL (8.5-10.1)
[2020-09-15 04:31] LABS: BUN/Creatinine Ratio 30.7; Bilirubin, Total 1.4 mg/dL (0.2-1.0); Total Protein 6.6 g/dL (6.4-8.2)
[2020-09-15 04:35] LABS: CRP High Sensitivity 13.2 mg/dL (< 0.3)
[2020-09-15 04:37] LABS: Basophils % (manual) 0 (0.0-2.0); Blast Cells 0; Eosinophils % (manual) 0 (0-7); Reactive Lymphocytes 0; White Blood Cell 47.6 10^3/uL (4.4-10.8)
[2020-09-15 04:47] LABS: Potassium 7.3 mmol/L (3.5-5.1)
[2020-09-15] MEDS: SODIUM ZIRCONIUM CYCL 10 GM PAK PO SCH (05:56)
[2020-09-15] MEDS ORDERED: DEXTROSE (50%) 50ML SYRG IV ONE (06:15)
[2020-09-15] MEDS ORDERED: ALBUTEROL SULF 2.5 MG/0.5ML(0.5%) NEB SOLN NEB ONE (06:15)
[2020-09-15] MEDS ORDERED: InsuLIN REG 1unit/0.01ml Soln (100units/ml) IV ONE (06:15)
[2020-09-15] MEDS ORDERED: SODIUM BICARBONATE 8.4 % INJ 50ML VIAL IV ONE (06:15)
[2020-09-15] MEDS ORDERED: CALCIUM CHL 100MG/ML 1,000 MG in D5W 5% 100 ML IV ONE (06:15)
[2020-09-15] MEDS ORDERED: CALCIUM GLUC 4.65meq/50ml D5AE 50 ML IV ONE (06:25)
[2020-09-15] MEDS: INSULIN LANTUS (GLARGINE) 1 /0.01ml (100units/ml) SC SCH (06:33)
[2020-09-15 07:33] LABS: Band Neutrophils % (manual) 45; Lymphocytes % (manual) 7 (10.0-50.0); Metamyelocytes % 9; Monocytes % (manual) 3 (0-12); Myelocytes % 24; Promyelocytes % 6
[2020-09-15] MEDS ORDERED: MEROPENEM 1GM IVPB 100 ML IV SCH (10:00)
[2020-09-15] MEDS ORDERED: EPINEPHrine HCL 1 MG/10 ML SYRG IV ONE (10:48)
== END 2020-09-15 12:10 | DRG 720 ==
LOC: ER 10:19 → OVERFLOW 12:52 → TELE-WESTW 08-14 22:02 → ICU CENTRL 08-31 14:10 → DOU IN ICU 08-31 14:12
PROVIDERS: ADMIT Internal Medicine; ATTEND Internal Medicine
PROC: 5A09557 Assistance with Respiratory Ventilation, Greater than 96 Consecutive Hours, Continuous Positive Airway Pressure (ICD-10-PCS; 2020-08-16)
PROC: 05HB33Z Insertion of Infusion Device into Right Basilic Vein, Percutaneous Approach (ICD-10-PCS; 2020-08-21)
PROC: B54MZZA Ultrasonography of Right Upper Extremity Veins, Guidance (ICD-10-PCS; 2020-08-21)
PROC: XW13325 Transfusion of Convalescent Plasma (Nonautologous) into Peripheral Vein, Percutaneous Approach, New Technology Group 5 (ICD-10-PCS; principal; 2020-08-30)
PROC: 5A1955Z Respiratory Ventilation, Greater than 96 Consecutive Hours (ICD-10-PCS; 2020-08-31)
PROC: 0BH17EZ Insertion of Endotracheal Airway into Trachea, Via Natural or Artificial Opening (ICD-10-PCS; 2020-08-31)
PROC: 02HV33Z Insertion of Infusion Device into Superior Vena Cava, Percutaneous Approach (ICD-10-PCS; 2020-08-31)
PROC: XW033E5 Introduction of Remdesivir Anti-infective into Peripheral Vein, Percutaneous Approach, New Technology Group 5 (ICD-10-PCS; 2020-09-15)
PROC: 5A12012 Performance of Cardiac Output, Single, Manual (ICD-10-PCS; 2020-09-15)
DX: A41.89 Other specified sepsis (principal); U07.1 COVID-19; J96.01 Acute respiratory failure with hypoxia; J12.82 Pneumonia due to coronavirus disease 2019; E03.9 Hypothyroidism, unspecified; E87.1 Hypo-osmolality and hyponatremia; J44.1 Chronic obstructive pulmonary disease with (acute) exacerbation; K72.00 Acute and subacute hepatic failure without coma; N17.9 Acute kidney failure, unspecified; R65.21 Severe sepsis with septic shock; E88.09 Other disorders of plasma-protein metabolism, not elsewhere classified; I46.9 Cardiac arrest, cause unspecified; E78.5 Hyperlipidemia, unspecified; E66.01 Morbid (severe) obesity due to excess calories; E87.6 Hypokalemia; J98.2 Interstitial emphysema; E87.5 Hyperkalemia; Z68.41 Body mass index [BMI] 40.0-44.9, adult; F32.9 Major depressive disorder, single episode, unspecified; J44.0 Chronic obstructive pulmonary disease with (acute) lower respiratory infection; F41.9 Anxiety disorder, unspecified; I11.0 Hypertensive heart disease with heart failure; D64.9 Anemia, unspecified; E11.65 Type 2 diabetes mellitus with hyperglycemia; J98.11 Atelectasis; Z83.3 Family history of diabetes mellitus; Z79.4 Long term (current) use of insulin; Z82.49 Family history of ischemic heart disease and other diseases of the circulatory system; Z87.891 Personal history of nicotine dependence; Z90.710 Acquired absence of both cervix and uterus; Z71.3 Dietary counseling and surveillance; I50.31 Acute diastolic (congestive) heart failure
CPT/HCPCS: 36415; 36569; 36600; 71045; 76775; 80048; 80053; 80074; 80076; 80202; 82040; 82728; 82805; 82962; 83605; 83615; 83735; 83880; 84100; 84132; 84478; 84484; 85007; 85025; 85027; 85379; 85610; 85730; 86141; 86850; 86900; 86901; 87040; 87070; 87077; 87081; 87205; 87426; 92950; 93005; 93306; 93970; 94002; 94003; 94640; 94660; 96365; 96375; 99291; G0378; J0171; J0330; J0610; J0696; J1100; J1815; J2185; J2250; J2405; J2704; J3480; J3490; J7060; J7131